=== PATIENT | male | born 1935 | race Caucasian/White ===

== ENCOUNTER 2017-01-25 14:32 | Outpatient (CLI) | payer MEDICARE, BC ==
--- NOTE | 2017-01-25 15:52 | RAD ---
THREE VIEWS RIGHT SHOULDER: Comparison: None. History: Right shoulder pain. FINDINGS: Three views of the right shoulder shows no evidence of acute fracture or dislocation. There is joint space narrowing and osteophyte formation in the acromioclavicular joint. No significant degenerativ e change is seen in the glenohumeral joint. IMPRESSION: Moderate right AC osteoarthritis without acute osseous abnormality. POS: [facility]
== END 2017-01-25 14:33 | disposition home or self-care (01) ==
LOC: SCSRAD 14:32
PROVIDERS: ATTEND Nurse Practitioner Family
DX: M25.511 Pain in right shoulder (principal); M19.011 Primary osteoarthritis, right shoulder

== ENCOUNTER 2017-05-16 11:22 | Outpatient (CLI) | payer MEDICARE, BC ==
[2017-05-16 11:50] LABS: Hemoglobin 15.3 g/dL (14.0-18.0); Mean Corpuscular HGB CONC 33.3 g/dL (32.0-36.0); Mean Corpuscular Hemoglobin 34.5 pg (27.0-31.0); Platelet Count 208 thou/uL (130-400); RBC Distribution Width 11.7 % (11.5-14.5); Red Blood Cell (RBC) Count 4.44 mill/uL (4.70-6.10); White Blood Cell (WBC) Count 6.4 thou/uL (4.8-10.8)
[2017-05-16 11:58] LABS: INR-International Normal Ratio 1.1; Prothrombin Time 14.8 SEC (12.0-14.7)
[2017-05-16 12:09] LABS: Anion Gap 12 mmol/L (10-20); BUN (Urea Nitrogen) 15 mg/dL (8.4-25.7); Calc. Creatinine Clearance 0 mL/min (70-130); Calcium 8.8 mg/dL (7.8-10.44); Carbon Dioxide 27 mmol/L (23-31); Chloride 106 mmol/L (98-107); Estimated GFR-MDRD 89; Glucose 124 mg/dL (83-110); Potassium 4.1 mmol/L (3.5-5.1); Sodium 141 mmol/L (136-145)
--- NOTE | 2017-05-18 00:49 | EKG ---
Test Reason : Blood Pressure : / mmHG Vent. Rate : 077 BPM Atrial Rate : 067 BPM P-R Int : 000 ms QRS Dur : 100 ms QT Int : 426 ms P-R-T Axes : 000 -45 048 degrees QTc Int : 482 ms Atrial fibrillation Left anterior fascicular block Minimal voltage criteria for LVH, may be normal variant Anterior infarct , age undetermined Prolonged QT Abnormal ECG When compared with ECG of 18-JUN-2010 09:17, QRS duration has decreased Borderline criteria for Anterior infarct are no longer Present Confirmed by UZIEL SELF, . SZhou (4) on 05/18/2017 12:49:24 AM Referred By: SMOOTH Confirmed By:DR. Claudine TRIPLETT MD
== END 2017-05-16 11:23 | disposition home or self-care (01) ==
LOC: LABBT 11:22
PROVIDERS: ATTEND Internal Medicine Cardiovascular Disease
DX: Z01.818 Encounter for other preprocedural examination (principal); I48.91 Unspecified atrial fibrillation
CPT/HCPCS: 80048; 85027; 85610; 85730; 93005; 93010

== ENCOUNTER 2017-05-29 09:05 | Day surgery (SDC) | payer MEDICARE, BC ==
[2017-05-16 11:48] VITALS: BMI 30.8
--- NOTE | 2017-05-29 12:43 | OP ---
DATE OF PROCEDURE: 05/29/2017 CARDIOVERSION REPORT REFERRING PHYSICIAN: REASON FOR PROCEDURE: Mr. Garland is an 82-year-old gentleman with history of atrial fibrillation, prior ablation in 2009 and 2010 persisting, but he is feeling more progressively dyspneic. He is here for cardioversion. PROCEDURE: The patient received propofol per Anesthesia specialist. After adequate level of sedation achieved, attempted 70 joule shock did not convert him to sinus rhythm, 150 joules shock was followed who also was unsuccessful. Eventually at 200 joule shock was delivered. Only a couple beats sinus rhythm seen which followed by persisting atypical atrial flutter. CONCLUSION: Unsuccessful cardioversion. PLAN: Recommend mitral valve evaluation with 2D echocardiogram by cardiolog. Previously asymptomatic A Fib. New symptoms could be related to worsening valve function. May initiate AAD vs redo ablation pending echo results. RUBEND
[2017-05-29] MEDS ORDERED: Propofol 200 MG/20 ML VIAL ONE (13:48)
[2017-05-29] MEDS ORDERED: PHENYLEPHRINE-NS 100 MCG/ML 10 ML SYRINGE ONE (13:48)
[2017-05-29] MEDS ORDERED: Lidocaine 1% PF 5 ML VIAL ONE (13:48)
== END 2017-05-29 12:50 | disposition home or self-care (01) ==
LOC: CCL 09:05
PROVIDERS: ATTEND Internal Medicine Cardiovascular Disease
DX: I48.1 Persistent atrial fibrillation (principal); I10 Essential (primary) hypertension; E78.5 Hyperlipidemia, unspecified; I49.3 Ventricular premature depolarization; I34.0 Nonrheumatic mitral (valve) insufficiency; M10.9 Gout, unspecified; Z79.01 Long term (current) use of anticoagulants; Z79.899 Other long term (current) drug therapy; Z87.01 Personal history of pneumonia (recurrent); Z90.89 Acquired absence of other organs; Z98.890 Other specified postprocedural states; E78.2 Mixed hyperlipidemia
CPT/HCPCS: 36415; 80053; 80061; 85025; 92960; 93005; 93010; J2001; J2704

== ENCOUNTER 2019-05-01 10:35 | Inpatient (IN) | payer MEDICARE, BC ==
[2019-05-01 12:42] LABS: Hemoglobin 14.6 g/dL (14.0-18.0); Mean Corpuscular HGB CONC 32.9 g/dL (32.0-36.0); Mean Corpuscular Hemoglobin 34.8 pg (27.0-31.0); Mean Platelet Volume 8.9 fL (7.4-10.4); Platelet Count 127 thou/uL (130-400); RBC Distribution Width 11.8 % (11.5-14.5); Red Blood Cell (RBC) Count 4.18 mill/uL (4.70-6.10)
[2019-05-01 12:47] LABS: #Basophils 0.1 thou/uL (0.0-0.2); #Lymphocytes 1.7 thou/uL (1.20-3.40); #Monocytes 0.6 thou/uL (0.11-0.59); #Neutrophils 4.6 thou/uL (1.40-6.50); %Eosinophils 0.2 % (0.0-10.0); %Monocytes 8.8 % (0.0-10.0); Burr Cells SLIGHT = 2-5 cells (100X) (0-1/hpf); Large Platelets SLIGHT; MDiff Complete? YES; Macrocytosis MODERATE=16-30 cells (100X) (0-5/hpf); Ovalocytes SLIGHT = 2-5 cells (100X) (0-1/hpf); Platelet Morphology Comment Appears Decreased; Polychromasia SLIGHT = 2-3 cells (100X) (0-2/hpf)
[2019-05-01 12:57] LABS: ALT (SGPT) 18 U/L (8-55); AST (SGOT) 19 U/L (5-34); Alkaline Phosphatase 90 U/L (40-110); Anion Gap 14 mmol/L (10-20); BUN (Urea Nitrogen) 25 mg/dL (8.4-25.7); Bilirubin, Total 1.4 mg/dL (0.2-1.2); Calc. Creatinine Clearance 0 mL/min (70-130); Calcium 8.8 mg/dL (7.8-10.44); Carbon Dioxide 21 mmol/L (23-31); Chloride 109 mmol/L (98-107); Estimated GFR-MDRD 73; Globulin 2.5 g/dL (2.4-3.5); Glucose 85 mg/dL (83-110); Potassium 4.2 mmol/L (3.5-5.1); Protein, Total 6.5 g/dL (5.8-8.1); Sodium 140 mmol/L (136-145)
--- NOTE | 2019-05-01 13:13 | RAD ---
EXAM: Single view of the chest HISTORY: Chest pain COMPARISON: 06/09/2009 FINDINGS: Single view of the chest shows an enlarged but stable cardiomediastinal silhouette. A card iac monitoring device projects over the left chest wall. There is no evidence of consolidation, mass, or pleural effusion. The bones are unremarkable. IMPRESSION: No evidence of acute cardiopulmonary disease
[2019-05-01 15:59] LABS: Troponin I 0.034 ng/mL (< 0.028)
[2019-05-01] MEDS ORDERED: Senokot S 8.6-50 MG TAB PO PRN (16:48)
[2019-05-01] MEDS ORDERED: Acetaminophen 650 MG Suppository PR PRN (16:48)
[2019-05-01] MEDS ORDERED: Guaifenesin DM 100-10/5 ML UDCUP PO PRN (16:48)
[2019-05-01] MEDS ORDERED: Acetaminophen 325 MG TAB PO PRN (16:48)
[2019-05-01] MEDS ORDERED: Ondansetron PF 4 MG/2 ML Vial IVP PRN (16:48)
[2019-05-01] MEDS ORDERED: Ondansetron ODT 4 MG TAB PO PRN (16:48)
[2019-05-01] MEDS ORDERED: Zolpidem Tartrate 5 MG TAB PO PRN (16:48)
[2019-05-01] MEDS ORDERED: Furosemide 40 MG/4 ML VIAL SLOW IVP SCH (17:00)
--- NOTE | 2019-05-01 18:03 | HP ---
PRIMARY CARE PHYSICIAN: Dr. Francesco Rich. CHIEF COMPLAINT: Feeling shaky and anxious. HISTORY OF PRESENT ILLNESS: This is an 84-year-old white male with a known history of chronic atrial fibrillation, who has also had a struggle with chronic insomnia from shaking of his legs at night. He has felt increasing shakiness in his legs for the last 2 nights, and felt kind of anxious, and was told by his that he was looking bad and he needs to go into the hospital. He went to the ER, was found to have rapid ventricular response of his atrial fibrillation into the 150s. He was put on a diltiazem drip, which did not resolve the atrial fibrillation, but did control the rate now between 70 to 100 beats per minute. He has not had any chest pain or other symptoms at this time. He was recently started on a Tylenol PM to try and help him sleep at night and put on omeprazole for his gastroesophageal reflux disease. No other significant changes to his medicines recently. The patient denies noticing any lower extremity edema, though he does have significant edema right now, he does not know how long it has been there. He did see Dr. Caal 2 months ago in the clinic and did not have any medication changes or workup done at that time, so he thinks he may not have had it at that time. He does not remember ever being told he had congestive heart failure and has never been on diuretics before that he can remember. He does not remember when his last echocardiogram was, but he does not think it was done in the last year. REVIEW OF SYSTEMS: CONSTITUTIONAL: No fevers. No chills. EYES: No double vision or blurred vision. ENT: No congestion, drainage, or sore throat. CARDIOVASCULAR: No chest pain. He has not noticed his heart racing or any palpitations. PULMONARY: No coughing, wheezing, or shortness of breath. GASTROINTESTINAL: No abdominal pain. No nausea or vomiting. No diarrhea or constipation. GENITOURINARY: No dysuria or hematuria. MUSCULOSKELETAL: No muscle aches or joint pains. He does have a jerking of his legs when he tries to sleep at night. SKIN: No rashes or lesions noted. NEUROLOGIC: No numbness, tingling, or focal weakness. PAST MEDICAL HISTORY: 1. Chronic atrial fibrillation, rate controlled and on Eliquis. 2. Gastroesophageal reflux disease. 3. Hyperlipidemia. 4. Hypertension. 5. Osteoarthritis. PAST SURGICAL HISTORY: 1. Tonsillectomy. 2. Broken jaw repair. 3. Hernia repair. 4. Right knee surgery. 5. Atrial fibrillation ablation x2. SOCIAL HISTORY: The patient smoked cigarettes and pipes some in college. He quit in the early 70s. No alcohol or illicit drug use. He is . He is a retired [employer] from [place] [employer] and [employer]. 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 ALLERGIES: NO KNOWN DRUG ALLERGIES. CURRENT MEDICATIONS: 1. Metoprolol succinate 25 mg twice a day. 2. Eliquis 5 mg twice a day. 3. Prilosec 20 mg daily. 4. Allopurinol 300 mg one-half tablet every other day. 5. Atorvastatin 20 mg daily. 6. Acetaminophen PM at night. PHYSICAL EXAMINATION: VITAL SIGNS: Blood pressure 132/103, pulse 88, respirations 20, O2 saturations 97% on room air, and temperature 97.8. GENERAL: This is a well-developed, well-nourished white male, in no acute distress. HEENT: Pupils are equal, round, and reactive to light. Oropharynx is clear without lesions, erythema, or exudate. NECK: Supple. No lymphadenopathy. No thyroid nodules or enlargement. No JVD. HEART: Irregularly irregular rhythm. No murmurs, rubs, or gallops. LUNGS: Clear to auscultation bilaterally. No crackles, or rhonchi. No increased work of breathing. ABDOMEN: Soft, nontender to palpation. Normoactive bowel sounds. No hepatosplenomegaly or other masses. EXTREMITIES: No clubbing or cyanosis. He does have 2+ pitting edema to bilateral lower extremities up to the knee. SKIN: No rashes or lesions noted. NEUROLOGIC: Intact strength and sensation in all extremities. No facial droop. PSYCHIATRIC: Alert and oriented x3. Normal mood and affect. LABORATORY DATA: CBC grossly normal. He does have an elevated MCV of 106 and a platelet count of 127. Complete metabolic panel notable for chloride of 109 and bicarb of 21 and a total bilirubin of 1.4, which is elevated for him, he has never been high before. The rest of his complete metabolic panel is normal. His troponin was negative the first time, it was indeterminate at 0.034 at his second check. Brain natriuretic peptide was elevated at 408. He has never had this when checked before. IMAGING STUDIES: Chest x-ray; I did review the chest x-ray done in the emergency room along with the radiologist's report. There is no infiltrates or pulmonary edema. There is some stable cardiomegaly unchanged from previous exams. EKG; I did review the EKG done in the emergency room and it does show atrial fibrillation with a rapid ventricular rate and with unifocal premature ventricular complexes. ASSESSMENT: 1. Atrial fibrillation with rapid ventricular rate, improved with diltiazem drip. 2. Hypertension, we will resume the patient's home medications. 3. Apparent new onset congestive heart failure, likely diastolic given his atrial arrhythmias. We will go ahead and get an echocardiogram and consult Cardiology to evaluate him in the morning. We will give him a dose of IV Lasix now and then daily after that. We will do strict I's and O's, and will put him on fluid restriction, low-salt cardiac diet. The patient will likely eventually need to be put on an TAYLOR inhibitor or ARB, and he is already on metoprolol. We will leave adjusting these medications to Cardiology tomorrow. 4. Elevated total bilirubin, mildly elevated, but has never been elevated before , concerning that may be related to hepatic congestion from congestive heart failure versus other etiology. We will go ahead and get an ultrasound of his right upper quadrant. 5. Gastroesophageal reflux disease. We will continue the patient's PPI. 6. Deep venous thrombosis prophylaxis. The patient is already on Eliquis. 7. Code status: I did discuss this with the patient. He is a do not attempt resuscitation. Should he be incapacitated, his would be his medical decision maker, her name is Anish Garland. 8. Insomnia with constant moving legs. It sounds like the patient may actually have some restless legs syndrome. We can try some Requip for restless legs syndrome and have the treatment titrated as an outpatient with his primary care physician. Job ID: [id number] MTDD
[2019-05-01 18:28] VITALS: BMI 28.4
[2019-05-01 18:56] LABS: Troponin I Less than 0.010 ng/mL (< 0.028)
[2019-05-01] MEDS: Atorvastatin Calcium 20 MG TAB PO SCH (20:44)
[2019-05-01] MEDS: Apixaban 5 MG TAB PO SCH (20:45)
[2019-05-01] MEDS: rOPINIRole HCl 0.25 MG TAB PO SCH (20:45)
[2019-05-02 05:36] LABS: #Basophils 0.1 thou/uL (0.0-0.2); #Lymphocytes 1.5 thou/uL (1.20-3.40); #Monocytes 0.7 thou/uL (0.11-0.59); #Neutrophils 5.3 thou/uL (1.40-6.50); %Basophils 0.9 % (0.0-1.0); %Eosinophils 0.3 % (0.0-10.0); %Lymphocytes 19.5 % (21.0-51.0); %Monocytes 9.2 % (0.0-10.0); %Neutrophils 70.1 % (42.0-75.0); Hemoglobin 14.6 g/dL (14.0-18.0); Mean Corpuscular HGB CONC 32.2 g/dL (32.0-36.0); Mean Corpuscular Hemoglobin 33.7 pg (27.0-31.0); Mean Platelet Volume 8.8 fL (7.4-10.4); Platelet Count 134 thou/uL (130-400); RBC Distribution Width 11.8 % (11.5-14.5); Red Blood Cell (RBC) Count 4.34 mill/uL (4.70-6.10); White Blood Cell (WBC) Count 7.5 thou/uL (4.8-10.8)
[2019-05-02 06:02] LABS: Anion Gap 17 mmol/L (10-20); BUN (Urea Nitrogen) 23 mg/dL (8.4-25.7); Calc. Creatinine Clearance 83 mL/min (70-130); Calcium 9.3 mg/dL (7.8-10.44); Carbon Dioxide 20 mmol/L (23-31); Chloride 105 mmol/L (98-107); Estimated GFR-MDRD 84; Glucose 105 mg/dL (83-110); Potassium 3.8 mmol/L (3.5-5.1); Sodium 138 mmol/L (136-145)
--- NOTE | 2019-05-02 07:32 | PDOC.HOSPP ---
- Subjective Encounter Date: 05/02/19 Encounter Time: 11:40 Subjective: Patient very jittery and on edge from not sleeping, Ambien didn't help last night and legs jumping all night. No confusion today, just always have to keep moving. No SOB. No chest pain. Swelling in leg improving a bit. Urinating well. - Objective Vital Signs & Weight: Vital Signs (12 hours) Temp Pulse Resp BP Pulse Ox 05/02/19 05:30 97.5 F L 110 H 18 140/80 95 05/01/19 23:40 97.5 F L 103 H 18 122/82 94 L 05/01/19 20:09 98.5 F 103 H 20 142/88 H 96 Weight Weight 197 lb 8.547 oz I&O: 05/01/19 05/02/19 05/03/19 06:59 06:59 06:59 Intake Total 240 Output Total 3620 Balance -3380 Result Diagrams: 05/02/19 05:25 05/02/19 05:25 Hospitalist ROS - Review of Systems Constitutional: denies: fever, chills Respiratory: denies: cough, shortness of breath Cardiovascular: reports: edema. denies: chest pain, palpitations, orthopnea Gastrointestinal: denies: nausea, vomiting, abdominal pain Neurological: reports: other (insomnia, jittery) - Medication Medications: Active Medications Generic Name Dose Route Start Last Admin Trade Name Freq PRN Reason Stop Dose Admin Apixaban 5 mg 05/01/19 21:00 05/01/19 20:45 Eliquis PO 5 mg BID VIBHA Administration Atorvastatin Calcium 20 mg 05/01/19 21:00 05/01/19 20:44 Lipitor PO 20 mg HS VIBHA Administration Metoprolol Succinate 25 mg 05/01/19 21:00 05/01/19 20:45 Toprol Xl PO 25 mg BID VIBHA Administration Ropinirole HCl 0.25 mg 05/01/19 21:00 05/01/19 20:45 Requip PO 0.25 mg HS VIBHA Administration Zolpidem Tartrate 5 mg 05/01/19 16:48 05/01/19 20:44 Ambien PO 5 mg HSPRN PRN Administration Insomnia - Exam General Appearance: NAD, awake alert Eye: anicteric sclera ENT: moist mucosa Heart: no murmur, no gallops, no rubs, irregular Respiratory: CTAB, no wheezes, no rales, no ronchi Gastrointestinal: soft, non-tender, non-distended, normal bowel sounds Extremities: 2+ LE edema (improving from last night) Musculoskeletal: normal tone, normal strength Psychiatric: normal behavior, A&O x 3 Psychiatric - other findings: midly anxious affect Hosp A/P (1) Atrial fibrillation with RVR Code(s): I48.91 - UNSPECIFIED ATRIAL FIBRILLATION Status: Acute (2) Acute congestive heart failure Code(s): I50.9 - HEART FAILURE, UNSPECIFIED Status: Acute Qualifiers: Heart failure type: unspecified Qualified Code(s): I50.9 - Heart failure, unspecified (3) Elevated bilirubin Code(s): R17 - UNSPECIFIED JAUNDICE Status: Acute (4) Hypertension Code(s): I10 - ESSENTIAL (PRIMARY) HYPERTENSION Status: Chronic Qualifiers: Hypertension type: essential hypertension Qualified Code(s): I10 - Essential (primary) hypertension (5) GERD (gastroesophageal reflux disease) Code(s): K21.9 - GASTRO-ESOPHAGEAL REFLUX DISEASE WITHOUT ESOPHAGITIS Status: Chronic (6) Restless leg syndrome Status: Chronic - Plan Patient diuresing well with IV lasix Cardizem bolus only in ER. Patient now back in slightly tachycardic afib. Cardiology consult this AM. ECHO pending. Starting requip for RLS, can increase dose tomorrow. Offered benzo for anxiety, patient would like to wait for tonight so doesn't accidentally nap and then can't sleep again tonight.
[2019-05-02] MEDS ORDERED: Allopurinol 300 MG TAB PO SCH (09:00)
[2019-05-02] MEDS: Allopurinol 300 MG TAB PO SCH (09:02)
[2019-05-02] MEDS: Apixaban 5 MG TAB PO SCH ×2 (09:03→20:29)
[2019-05-02] MEDS: Furosemide 40 MG/4 ML VIAL SLOW IVP SCH (09:03)
--- NOTE | 2019-05-02 09:12 | ULT ---
RIGHT UPPER QUADRANT ULTRASOUND: HISTORY: Elevated bilirubin. FINDINGS: The liver demonstrates a homogeneous echotexture without focal mass or intrahepatic ductal dilatation . The gallbladder is distended without gallstones, gallbladder wall thickening or pericholecystic flu id. The common duct measures 3 mm in diameter. The pancreas is obscured due to bowel gas. The right k idney is normal. No free fluid is seen. IMPRESSION: No evidence of cholelithiasis. POS: [facility]
--- NOTE | 2019-05-02 14:10 | CON ---
DATE OF CONSULTATION: 05/02/2019 PRIMARY LIFE TRAINER: Stu Caal MD REASON FOR CONSULTATION: Atrial fibrillation with RVR. HISTORY OF PRESENT ILLNESS: Mr. Garland is a very pleasant 84-year-old white gentleman, who comes to the hospital for being jittery. His tells me that for the last 3 to 4 weeks, he has not been sleeping well. He only sleeps about 3 to 4 hours a day because he tries to go to sleep when he starts shaking all over, all his body is shaking. His became concerned more recently as he continued to do this and brought him in for further evaluation. He denies any chest pain, tightness, pressure. No shortness of breath. No palpitations. On admission, he was found to be in atrial fibrillation and RVR, heart rate in the 130s. He is chronically in atrial fibrillation. He is rate controlled most of the time on 25 mg of metoprolol b.i.d. and is also on Eliquis 5 mg twice a day for stroke prophylaxis. He was found to have a mildly elevated BNP and was admitted, given IV Lasix and given a dose of IV diltiazem, that slowed him down, but his blood pressure dropped a little bit, so he is back up into the 110s, 130s. He denies palpitations or any other issues. He has had two ablations in the past. PAST MEDICAL HISTORY: 1. Chronic atrial fibrillation, rate control. 2. History of atrial fibrillation ablations in the past. 3. Hypertension. 4. Hyperlipidemia. 5. Moderate mitral valve regurgitation. 6. Fenpwfex-mr-huokuy tricuspid valve regurgitation. 7. Chronic diastolic heart failure. 8. Hyperlipidemia. 9. GERD. 10. Prostate cancer in the past. OUTPATIENT MEDICATIONS: 1. Eliquis 5 mg b.i.d. 2. Toprol-XL 25 mg a day. 3. Lipitor 20 mg a day. 4. Nexium 40 mg a day. 5. Allopurinol 200 mg a day. 6. Melatonin. 7. Spironolactone 25 mg a day. 8. Clonazepam 0.5 mg a day. ALLERGIES: NO KNOWN DRUG ALLERGIES. SURGICAL HISTORY: 1. Hernia repair. 2. Jaw surgery. 3. Left knee surgery. FAMILY HISTORY: Noncontributory. SOCIAL HISTORY: No alcohol, tobacco, or drugs. REVIEW OF SYSTEMS: Twelve-point review of systems was done and was all negative unless stated in the History of Present Illness. PHYSICAL EXAMINATION: VITAL SIGNS: Temperature 97.5, pulse 104, respiratory rate 18, saturation 92% on room air, blood pressure 138/92. GENERAL: Awake, alert, and oriented x3. No distress. HEENT: Normocephalic, atraumatic. NECK: Supple. LUNGS: Clear. CARDIOVASCULAR: S1, S2. No S3 or S4. No murmurs. ABDOMEN: Soft. Positive bowel sounds. EXTREMITIES: 2+ edema. SKIN: Warm and dry. LABORATORY WORK: Reviewed. CBC with a white count of 7.5, hemoglobin of 14, hematocrit 45, and platelet count of a 134. Chemistries are unremarkable, except for carbon dioxide of 20. Troponin was undetectable, then 0.03, then undetectable again. BNP was 408. ASSESSMENT: 1. Chronic atrial fibrillation, currently in rapid ventricular response. 2. Insomnia. 3. Recent exposure to influenza A. He did have his flu shot, but his had the influenza A diagnosed by swab about 2 or 3 weeks ago. 4. Increased lower extremity swelling. 5. Acute on chronic diastolic heart failure. PLAN: 1. Repeat echocardiogram. His last EF on echo back in June in the office was about 55% to 60%. 2. Continue IV Lasix at current dose as 40 IV daily as his blood pressure has been dropping a little bit. 3. We will try to increase beta sylvia to 50 mg b.i.d. on his metoprolol tartrate and will add diltiazem to try to slow him down a little bit more. 4. Continue Eliquis for stroke prophylaxis. Thank you for letting us to participate in the care of your patient. Dr. Caal, his primary seasonal clerk will follow up in the morning. Job ID: [id number]
--- NOTE | 2019-05-02 14:39 | ULT ---
EXAM: Bilateral lower extremity venous Doppler US HISTORY: bilateral lower extremity edema and pain FINDINGS: Grayscale, color-flow, Doppler evaluation, spectral analysis of the bilateral lower extremities venou s structures is performed with 2-D imaging. The bilateral common femoral, superficial femoral, popliteal, posterior tibial, proximal greater saphenous and profunda femoral veins are imaged. There is normal luminal compressibility, flow, and augmentation in the visualized deep venous structu res of the bilateral lower extremities. IMPRESSION: No evidence of a deep vein thrombosis in either lower extremity.
[2019-05-02 17:19] LABS: Free T4 (Free Thyroxine) 1.19 ng/dL (0.70-1.48); Thyroid Stimulating Hormone 1.6741 uIU/mL (0.35-4.94)
[2019-05-02] MEDS: traZODone HCl 50 MG TAB PO PRN (20:29)
[2019-05-02] MEDS: rOPINIRole HCl 0.25 MG TAB PO SCH (20:29)
[2019-05-02] MEDS: Lorazepam 0.5 MG TAB PO PRN (20:29)
[2019-05-02] MEDS: Atorvastatin Calcium 20 MG TAB PO SCH (20:29)
[2019-05-02] MEDS ORDERED: Diltiazem HCl SR 60 mg Capsule PO SCH (21:00)
[2019-05-03 05:28] LABS: Anion Gap 12 mmol/L (10-20); BUN (Urea Nitrogen) 22 mg/dL (8.4-25.7); Calc. Creatinine Clearance 86 mL/min (70-130); Calcium 8.9 mg/dL (7.8-10.44); Carbon Dioxide 28 mmol/L (23-31); Chloride 104 mmol/L (98-107); Estimated GFR-MDRD 89; Glucose 105 mg/dL (83-110); Potassium 3.6 mmol/L (3.5-5.1); Sodium 140 mmol/L (136-145)
[2019-05-03] MEDS ORDERED: Sacubitril 24.5 MG/Valsartan 25.5 MG TABLET PO SCH (09:00)
[2019-05-03] MEDS: Furosemide 40 MG/4 ML VIAL SLOW IVP SCH (09:33)
[2019-05-03] MEDS: Spironolactone 25 MG TAB PO SCH (09:33)
[2019-05-03] MEDS: Apixaban 5 MG TAB PO SCH ×2 (09:33→20:16)
--- NOTE | 2019-05-03 11:40 | PDOC.HOSPP ---
- Subjective Encounter Date: 05/03/19 Encounter Time: 08:20 Subjective: No specific complaint.. - Objective Vital Signs & Weight: Vital Signs (12 hours) Temp Pulse Resp BP Pulse Ox 05/03/19 07:33 97.5 F L 94 16 119/85 93 L 05/03/19 03:45 98.4 F 84 18 127/75 95 Weight Weight 195 lb 8.8 oz I&O: 05/02/19 05/03/19 05/04/19 06:59 06:59 06:59 Intake Total 240 720 Output Total 3620 1800 Balance -3380 -1080 Result Diagrams: 05/02/19 05:25 05/03/19 04:45 Hospitalist ROS - Medication Medications: Active Medications Generic Name Dose Route Start Last Admin Trade Name Freq PRN Reason Stop Dose Admin Allopurinol 150 mg 05/02/19 09:00 05/02/19 09:02 Zyloprim PO 150 mg Q2DAYS VIBHA Administration Apixaban 5 mg 05/01/19 21:00 05/03/19 09:33 Eliquis PO 5 mg BID VIBHA Administration Furosemide 40 mg 05/02/19 09:00 05/03/19 09:33 Lasix SLOW IVP 40 mg DAILY VIBHA Administration Lorazepam 0.5 mg 05/02/19 14:19 05/02/19 20:29 Ativan PO 0.5 mg Q4H PRN Administration Anxiety Metoprolol Succinate 50 mg 05/02/19 21:00 05/03/19 09:33 Toprol Xl PO 50 mg BID VIBHA Administration Pantoprazole Sodium 40 mg 05/02/19 09:00 05/03/19 09:33 Protonix PO 40 mg DAILY VIBHA Administration Ropinirole HCl 0.25 mg 05/01/19 21:00 05/02/19 20:29 Requip PO 0.25 mg HS VIBHA Administration Sacubitril/Valsartan 1 tab 05/03/19 09:00 05/03/19 09:34 Entresto 24.5 Mg-25.5 Mg Tablet PO 1 tab BID VIBHA Administration Spironolactone 25 mg 05/03/19 08:00 05/03/19 09:33 Aldactone PO 25 mg QAM-WM VIBHA Administration Trazodone HCl 50 mg 05/02/19 11:53 05/02/19 20:29 Desyrel PO 50 mg HSPRN PRN Administration Insomnia - Exam Neck: no JVD Heart: irregular Respiratory: CTAB Gastrointestinal: soft Extremities: 2+ LE edema Neurological: no weakness Psychiatric: normal affect Hosp A/P (1) Acute congestive heart failure Code(s): I50.9 - HEART FAILURE, UNSPECIFIED Status: Acute Qualifiers: Heart failure type: unspecified Qualified Code(s): I50.9 - Heart failure, unspecified (2) Atrial fibrillation with RVR Code(s): I48.91 - UNSPECIFIED ATRIAL FIBRILLATION Status: Acute (3) Elevated bilirubin Code(s): R17 - UNSPECIFIED JAUNDICE Status: Acute (4) GERD (gastroesophageal reflux disease) Code(s): K21.9 - GASTRO-ESOPHAGEAL REFLUX DISEASE WITHOUT ESOPHAGITIS Status: Chronic (5) Hypertension Code(s): I10 - ESSENTIAL (PRIMARY) HYPERTENSION Status: Chronic Qualifiers: Hypertension type: essential hypertension Qualified Code(s): I10 - Essential (primary) hypertension (6) Restless leg syndrome Status: Chronic - Plan Overall condition better.. Meds readjusted. Continue current therapy.. f/u chemistry.
[2019-05-03] MEDS ORDERED: Digoxin 0.5 MG/2 ML AMP SLOW IVP SCH ×2 (14:45→16:45)
[2019-05-03] MEDS ORDERED: Digoxin 0.25 MG TAB PO SCH (18:45)
[2019-05-03] MEDS: rOPINIRole HCl 0.25 MG TAB PO SCH (20:16)
[2019-05-03] MEDS: Lorazepam 0.5 MG TAB PO PRN (22:22)
[2019-05-04] MEDS: traZODone HCl 50 MG TAB PO PRN ×2 (00:53→20:52)
[2019-05-04] MEDS: Lorazepam 0.5 MG TAB PO PRN ×2 (02:37→22:12)
[2019-05-04 06:04] LABS: Anion Gap 12 mmol/L (10-20); BUN (Urea Nitrogen) 16 mg/dL (8.4-25.7); Calc. Creatinine Clearance 93 mL/min (70-130); Carbon Dioxide 28 mmol/L (23-31); Chloride 105 mmol/L (98-107); Estimated GFR-MDRD Greater than 90; Glucose 103 mg/dL (83-110); Potassium 3.8 mmol/L (3.5-5.1); Sodium 141 mmol/L (136-145)
[2019-05-04] MEDS: Allopurinol 300 MG TAB PO SCH (08:52)
[2019-05-04] MEDS: Spironolactone 25 MG TAB PO SCH (08:52)
[2019-05-04] MEDS: Digoxin 0.25 MG TAB PO SCH (08:53)
[2019-05-04] MEDS: Furosemide 40 MG/4 ML VIAL SLOW IVP SCH (08:53)
[2019-05-04] MEDS: Apixaban 5 MG TAB PO SCH ×2 (08:54→20:53)
--- NOTE | 2019-05-04 11:03 | PDOC.HOSPP ---
- Subjective Encounter Date: 05/04/19 Encounter Time: 08:25 Subjective: No new complaint.. Feels better. - Objective Vital Signs & Weight: Vital Signs (12 hours) Temp Pulse Pulse Pulse Resp BP BP 05/04/19 09:04 60 69 128/69 147/66 H 05/04/19 07:20 97.7 F 60 16 05/04/19 02:35 98 F 96 17 BP Pulse Ox Pulse Ox Pulse Ox 05/04/19 09:04 96 96 05/04/19 07:20 112/68 93 L 05/04/19 02:35 114/80 94 L Weight Weight 188 lb 0.869 oz I&O: 05/03/19 05/04/19 05/05/19 06:59 06:59 06:59 Intake Total 720 1055 Output Total 3417 5962 [facility] -6023 -6250 Result Diagrams: 05/02/19 05:25 05/04/19 05:23 Hospitalist ROS - Medication Medications: Active Medications Generic Name Dose Route Start Last Admin Trade Name Freq PRN Reason Stop Dose Admin Allopurinol 150 mg 05/02/19 09:00 05/04/19 08:52 Zyloprim PO 150 mg Q2DAYS VIBHA Administration Apixaban 5 mg 05/01/19 21:00 05/04/19 08:54 Eliquis PO 5 mg BID VIBHA Administration Digoxin 0.25 mg 05/04/19 09:00 05/04/19 08:53 Lanoxin PO 0.25 mg QAM VIBHA Administration Furosemide 40 mg 05/02/19 09:00 05/04/19 08:53 Lasix SLOW IVP 40 mg DAILY VIBHA Administration Lorazepam 0.5 mg 05/02/19 14:19 05/04/19 02:37 Ativan PO 0.5 mg Q4H PRN Administration Anxiety Metoprolol Succinate 50 mg 05/02/19 21:00 05/04/19 08:53 Toprol Xl PO 50 mg BID VIBHA Administration Pantoprazole Sodium 40 mg 05/02/19 09:00 05/04/19 08:53 Protonix PO 40 mg DAILY VIBHA Administration Ropinirole HCl 0.25 mg 05/01/19 21:00 05/03/19 20:16 Requip PO 0.25 mg HS VIBHA Administration Sacubitril/Valsartan 1 tab 05/03/19 21:00 05/04/19 08:54 Entresto 24 Mg-26 Mg Tablet PO 1 tab BID VIBHA Administration Spironolactone 25 mg 05/03/19 08:00 05/04/19 08:52 Aldactone PO 25 mg QAM-WM VIBHA Administration Trazodone HCl 50 mg 05/02/19 11:53 05/04/19 00:53 Desyrel PO 50 mg HSPRN PRN Administration Insomnia - Exam Neck: no JVD Heart: irregular Respiratory: CTAB Gastrointestinal: soft Extremities: 1+ LE edema Psychiatric: normal affect Hosp A/P (1) Acute congestive heart failure Code(s): I50.9 - HEART FAILURE, UNSPECIFIED Status: Acute Qualifiers: Heart failure type: unspecified Qualified Code(s): I50.9 - Heart failure, unspecified (2) Atrial fibrillation with RVR Code(s): I48.91 - UNSPECIFIED ATRIAL FIBRILLATION Status: Acute (3) Elevated bilirubin Code(s): R17 - UNSPECIFIED JAUNDICE Status: Acute (4) GERD (gastroesophageal reflux disease) Code(s): K21.9 - GASTRO-ESOPHAGEAL REFLUX DISEASE WITHOUT ESOPHAGITIS Status: Chronic (5) Hypertension Code(s): I10 - ESSENTIAL (PRIMARY) HYPERTENSION Status: Chronic Qualifiers: Hypertension type: essential hypertension Qualified Code(s): I10 - Essential (primary) hypertension (6) Restless leg syndrome Status: Chronic - Plan Overall condition better.. Meds readjusted. Continue current therapy.. f/u with cardiology. continue current therapy..
[2019-05-04] MEDS: rOPINIRole HCl 0.25 MG TAB PO SCH (20:52)
[2019-05-04] MEDS ORDERED: Melatonin 3 MG TAB PO PRN (23:44)
[2019-05-05] MEDS: Apixaban 5 MG TAB PO SCH ×2 (09:07→21:10)
[2019-05-05] MEDS: Furosemide 40 MG/4 ML VIAL SLOW IVP SCH (09:07)
[2019-05-05] MEDS: Spironolactone 25 MG TAB PO SCH (09:07)
[2019-05-05] MEDS: Digoxin 0.25 MG TAB PO SCH (09:07)
--- NOTE | 2019-05-05 09:22 | PDOC.HOSPP ---
- Subjective Encounter Date: 05/05/19 Encounter Time: 08:55 Subjective: Expresses no complaint. Feels better. - Objective Vital Signs & Weight: Vital Signs (12 hours) Temp Pulse Resp BP Pulse Ox 05/05/19 07:30 98.3 F 60 18 102/57 L 93 L 05/05/19 04:05 98 F 92 18 105/63 95 Weight Weight 183 lb 6.793 oz I&O: 05/04/19 05/05/19 05/06/19 06:59 06:59 06:59 Intake Total 1055 1200 Output Total 5028 6842 Balance -6653 -7131 Result Diagrams: 05/02/19 05:25 05/04/19 05:23 Hospitalist ROS - Medication Medications: Active Medications Generic Name Dose Route Start Last Admin Trade Name Freq PRN Reason Stop Dose Admin Allopurinol 150 mg 05/02/19 09:00 05/04/19 08:52 Zyloprim PO 150 mg Q2DAYS VIBHA Administration Apixaban 5 mg 05/01/19 21:00 05/05/19 09:07 Eliquis PO 5 mg BID VIBHA Administration Digoxin 0.25 mg 05/04/19 09:00 05/05/19 09:07 Lanoxin PO 0.25 mg QAM VIBHA Administration Furosemide 40 mg 05/02/19 09:00 05/05/19 09:07 Lasix SLOW IVP 40 mg DAILY VIBHA Administration Lorazepam 0.5 mg 05/02/19 14:19 05/04/19 22:12 Ativan PO 0.5 mg Q4H PRN Administration Anxiety Metoprolol Succinate 50 mg 05/02/19 21:00 05/05/19 09:07 Toprol Xl PO 50 mg BID VIBHA Administration Pantoprazole Sodium 40 mg 05/02/19 09:00 05/05/19 09:07 Protonix PO 40 mg DAILY VIBHA Administration Ropinirole HCl 0.25 mg 05/01/19 21:00 05/04/19 20:52 Requip PO 0.25 mg HS VIBHA Administration Sacubitril/Valsartan 1 tab 05/03/19 21:00 05/05/19 09:07 Entresto 24 Mg-26 Mg Tablet PO 1 tab BID VIBHA Administration Spironolactone 25 mg 05/03/19 08:00 05/05/19 09:07 Aldactone PO 25 mg QAM-WM VIBHA Administration Trazodone HCl 50 mg 05/02/19 11:53 05/04/19 20:52 Desyrel PO 50 mg HSPRN PRN Administration Insomnia - Exam General Appearance: NAD Neck: no JVD Heart: irregular Respiratory: CTAB Gastrointestinal: soft Extremities: 2+ LE edema Neurological: no weakness Psychiatric: normal affect Hosp A/P (1) Acute congestive heart failure Code(s): I50.9 - HEART FAILURE, UNSPECIFIED Status: Acute Qualifiers: Heart failure type: unspecified Qualified Code(s): I50.9 - Heart failure, unspecified (2) Atrial fibrillation with RVR Code(s): I48.91 - UNSPECIFIED ATRIAL FIBRILLATION Status: Acute (3) Elevated bilirubin Code(s): R17 - UNSPECIFIED JAUNDICE Status: Acute (4) GERD (gastroesophageal reflux disease) Code(s): K21.9 - GASTRO-ESOPHAGEAL REFLUX DISEASE WITHOUT ESOPHAGITIS Status: Chronic (5) Hypertension Code(s): I10 - ESSENTIAL (PRIMARY) HYPERTENSION Status: Chronic Qualifiers: Hypertension type: essential hypertension Qualified Code(s): I10 - Essential (primary) hypertension (6) Restless leg syndrome Status: Chronic - Plan Overall condition better.. Meds readjusted. Continue current therapy... continue current therapy.. Home when OK with cardiology..
[2019-05-05] MEDS: rOPINIRole HCl 0.25 MG TAB PO SCH (21:10)
[2019-05-05] MEDS: traZODone HCl 50 MG TAB PO PRN (21:10)
[2019-05-05] MEDS: Lorazepam 0.5 MG TAB PO PRN (22:20)
--- NOTE | 2019-05-06 08:31 | PDOC.HOSPP ---
- Subjective Encounter Date: 05/06/19 Encounter Time: 10:00 Subjective: Patient eventually slept about midnight and woke up at 0800 this AM. Feeling much better. Internal shaking feeling improved. Cleared for d/c by Dr. Caal. - Objective Vital Signs & Weight: Vital Signs (12 hours) Temp Pulse Resp BP Pulse Ox 05/06/19 04:25 97.6 F 76 16 105/70 95 Weight Weight 183 lb 1.6 oz I&O: 05/05/19 05/06/19 05/07/19 06:59 06:59 06:59 Intake Total 1200 1160 Output Total 2650 2350 Balance -1450 -1190 Result Diagrams: 05/02/19 05:25 05/04/19 05:23 Hospitalist ROS - Review of Systems Constitutional: denies: fever, chills Respiratory: denies: cough, shortness of breath Cardiovascular: denies: chest pain, palpitations, edema Gastrointestinal: denies: nausea, vomiting, abdominal pain - Medication Medications: Active Medications Generic Name Dose Route Start Last Admin Trade Name Freq PRN Reason Stop Dose Admin Allopurinol 150 mg 05/02/19 09:00 05/04/19 08:52 Zyloprim PO 150 mg Q2DAYS VIBHA Administration Apixaban 5 mg 05/01/19 21:00 05/05/19 21:10 Eliquis PO 5 mg BID VIBHA Administration Lorazepam 0.5 mg 05/02/19 14:19 05/05/19 22:20 Ativan PO 0.5 mg Q4H PRN Administration Anxiety Melatonin 3 mg 05/04/19 23:44 05/05/19 23:26 Melatonin PO 3 mg HSPRN PRN Administration Insomnia Metoprolol Succinate 50 mg 05/02/19 21:00 05/05/19 21:10 Toprol Xl PO 50 mg BID VIBHA Administration Pantoprazole Sodium 40 mg 05/02/19 09:00 05/05/19 09:07 Protonix PO 40 mg DAILY VIBHA Administration Ropinirole HCl 0.25 mg 05/01/19 21:00 05/05/19 21:10 Requip PO 0.25 mg HS VIBHA Administration Sacubitril/Valsartan 1 tab 05/03/19 21:00 05/05/19 21:10 Entresto 24 Mg-26 Mg Tablet PO 1 tab BID VIBHA Administration Spironolactone 25 mg 05/03/19 08:00 05/05/19 09:07 Aldactone PO 25 mg QAM-WM VIBHA Administration Trazodone HCl 50 mg 05/02/19 11:53 05/05/19 21:10 Desyrel PO 50 mg HSPRN PRN Administration Insomnia - Exam General Appearance: NAD, awake alert Eye: anicteric sclera ENT: moist mucosa Heart: no murmur, no gallops, irregular Respiratory: CTAB, no wheezes, no rales, no ronchi Gastrointestinal: soft, non-tender, non-distended, normal bowel sounds Extremities: no edema Psychiatric: normal affect, normal behavior, A&O x 3 Hosp A/P (1) Atrial fibrillation with RVR Code(s): I48.91 - UNSPECIFIED ATRIAL FIBRILLATION Status: Acute (2) Acute congestive heart failure Code(s): I50.9 - HEART FAILURE, UNSPECIFIED Status: Acute Qualifiers: Heart failure type: combined systolic and diastolic Qualified Code(s): I50.41 - Acute combined systolic (congestive) and diastolic (congestive) heart failure (3) Elevated bilirubin Code(s): R17 - UNSPECIFIED JAUNDICE Status: Acute (4) Hypertension Code(s): I10 - ESSENTIAL (PRIMARY) HYPERTENSION Status: Chronic Qualifiers: Hypertension type: essential hypertension Qualified Code(s): I10 - Essential (primary) hypertension (5) GERD (gastroesophageal reflux disease) Code(s): K21.9 - GASTRO-ESOPHAGEAL REFLUX DISEASE WITHOUT ESOPHAGITIS Status: Chronic (6) Restless leg syndrome Status: Chronic - Plan Patient diuresed well, now switched to oral lasix Afib rate controlled on increased dose Metoprolol and Digoxin ECHO with EF 30-35%, mixed systolic/diastolic CHF Dr Caal following. T.bili minimally high, normal U/S, suspect from hepatic congestion Per Dr. Rich patient was fine on introductory dose of Requip at home, but very internally jittery with attempted increase. Will continue on introductory dose only as tolerating it well. Sleeping better on Trazadone. Home today.
[2019-05-06] MEDS ORDERED: Sodium Chloride 0.9% 10 ML ONE (08:37)
[2019-05-06] MEDS ORDERED: Digoxin 0.125 MG TAB PO SCH (09:00)
[2019-05-06] MEDS ORDERED: Furosemide 20 MG TAB PO SCH (09:00)
[2019-05-06] MEDS: Allopurinol 300 MG TAB PO SCH (09:38)
[2019-05-06] MEDS: Spironolactone 25 MG TAB PO SCH (09:38)
[2019-05-06] MEDS: Apixaban 5 MG TAB PO SCH (09:39)
[2019-05-06 12:21] VITALS: TEMP 97.9
[2019-05-06 17:25] VITALS: BP 90/64
[2019-05-06] MEDS ORDERED: Atorvastatin Calcium 20 MG TAB PO SCH (21:00)
--- NOTE | 2019-05-07 04:46 | DIS ---
DATE OF ADMISSION: 05/02/2019 DATE OF DISCHARGE: 05/06/2019 PRIMARY CARE PHYSICIAN: Francesco Rich MD REASON FOR ADMISSION: Atrial fibrillation with rapid ventricular rate and CHF. DIAGNOSES AT DISCHARGE: 1. Chronic atrial fibrillation, now with controlled rate. 2. Acute combined systolic and diastolic congestive heart failure. 3. Hypertension. 4. Gastroesophageal reflux disease. 5. Restless legs syndrome. 6. Insomnia. PROCEDURES: 1. Right upper quadrant ultrasound showing normal liver, normal gallbladder, and normal common bile duct. 2. Bilateral lower extremity Doppler ultrasound showing no evidence of deep venous thrombosis. 3. Echocardiogram showing ejection fraction of 30% to 35% and diastolic dysfunction due to atrial fibrillation. 4. Repeat echocardiogram after treatment showing an ejection fraction of 35% to 40%. CONSULTATIONS: Cardiology, Dr. Guillermo and Dr. Caal. SUMMARY OF HOSPITAL COURSE: This is an 84-year-old white male with a known history of chronic atrial fibrillation and chronic insomnia with restless legs syndrome. He presented with increased shakiness in his legs for the last two nights, feeling very anxious, not able to sleep at all for two nights. So, he came into the ER, was found to be in atrial fibrillation with a rapid ventricular rate into the 150s. This resolved with a dose of diltiazem. He was also noted to have significant lower extremity edema bilaterally. He has never been on loop diuretics per his report. The patient was admitted to the hospital. Dr. Guillermo was consulted for Dr. Caal. The patient had an echocardiogram, which showed a newly lowered ejection fraction of 30% to 35% with diastolic dysfunction. The patient was diuresed with Lasix in the hospital with resolution of his lower extremity edema. He had his rate control with digoxin and increase in his home metoprolol. I did discuss patient's case with Dr. Rich, who has been treating his restless legs syndrome and insomnia as an outpatient. He states that he had been on Requip with some good results, but at the very introductory dose, when they tried to increase to the double dose, the patient became very shaky internally. Dr. Rich was concerned that this might be a dopaminergic reaction and discontinued the medication. He has not been able to get any other medicines to work for the insomnia. At this point, we did restart his Requip with a very low dose and he seemed to have some benefit from that without any increase in his shakiness. We also started him on trazodone and this seemed to help and he did get a full night's sleep the night before discharge. The patient was, after the diuretics, being placed on Entresto and spironolactone. The patient's echo was repeated, and his ejection fraction had come up a little bit. He then was not needing any defibrillator at the time of discharge, and he was cleared to go home by Dr. Caal. DISCHARGE MANAGEMENT: Discharged home. FOLLOWUP: Follow up with Dr. Caal on August [address] Rich on May 10 along with cardiac rehab. ACTIVITY: As tolerated. DIET: Healthy heart, fluid-restricted, low-sodium diet. MEDICATIONS: 1. Digoxin 0.125 mg daily, 30 tablets dispensed. 2. Furosemide 20 mg daily, 30 tablets dispensed. 3. Melatonin 3 mg at night as needed, 30 tablets dispensed. 4. Metoprolol succinate 50 mg twice a day, 60 tablets dispensed. 5. Requip 0.25 mg at night, 30 tablets dispensed. 6. Entresto 24/26 mg one tablet twice a day, 60 tablets dispensed. 7. Spironolactone 25 mg daily, 30 tablets dispensed. 8. Trazodone 50 mg at night as needed for insomnia, 30 tablets dispensed. 9. Allopurinol 150 mg every other day. 10. Eliquis 5 mg twice a day. 11. Atorvastatin 20 mg at night. 12. Prilosec 20 mg daily. TIME SPENT: Arranging the details of this discharge took 35 minutes. Job ID: [id number]
--- NOTE | 2019-05-08 01:17 | PQF ---
ALBIN VILLAGOMEZ RYAN ANDREW MD [id number] CLINICAL DOCUMENTATION CLARIFICATION FORM: POST DISCHARGE Addendum to original discharge summary date: ____ Late entry note date: __ DATE: 05/08/2019 ATTN: Prakash Daugherty Please exercise your independent, professional judgment in responding to the clarification form. Clinical indicators are provided on the bottom of this form for your review Please check appropriate box(s): Conflicting documentation was noted in the Medical Record, please clarify if patient is being treated/monitored for: [ X ] Acute combined systolic/diastolic CHF [ ] Acute on chronic diastolic CHF [ ] Acute diastolic CHF [ ] Other diagnosis [ ] Unable to determine In addition, please specify: Present on Admission (POA): [ X ] Yes [ ] No [ ] Unable to determine For continuity of documentation, please document condition throughout progress notes and discharge summary. Thank You. CLINICAL INDICATORS - SIGNS / SYMPTOMS/ LABS Consult 05/02 "Acute on chronic diastolic CHF" PN 05/03 "Acute CHF" DS 05/06 "Acute combined systolic/diastolic CHF" Consult 05/02 "Chronic diastolic CHF" HP 05/01 "he does have significant edema" HP 05/01 "some stable cardiomegaly" DS 05/06 "EF 30% to 35% with diastolic dysfunction" RISK FACTORS HP 05/01-84 years old male HP 05/01-Chronic Afib HP 05/01-HLD HP 05/01-HTN HP 05/01-Former Smoker Consult 05/02-Mitral and tricuspid regurgitation TREATMENT Collected 05/01-Chest Xray 05/01-Strict inputs and outputs Collected 05/02-Echocardiogram MAR 05/01-Eliquis 5mg Oral MAR 05/01-Lipitor 20mg Oral MAR 05/01-Metoprolol 25mg Oral MAR 05/03-Aldactone 25mg Oral MAR 05/06-Lasix 20mg Oral (This form is maintained as a part of the permanent medical record) 2014 [employer], [employer]. All Rights Reserved [email or web address] [not provided] MTDD
== END 2019-05-06 17:30 | disposition home or self-care (01) | DRG 308 ==
LOC: ERS 10:35 → ERHOLD 14:39 → 2SW 17:58 → OBSVTOIN 05-02 11:51 → 2NO 05-05 16:35
PROVIDERS: ADMIT Emergency Medicine; ATTEND Emergency Medicine
DX: I48.20 Chronic atrial fibrillation, unspecified (principal); I50.41 Acute combined systolic (congestive) and diastolic (congestive) heart failure; R17 Unspecified jaundice; I11.0 Hypertensive heart disease with heart failure; F51.04 Psychophysiologic insomnia; K21.9 Gastro-esophageal reflux disease without esophagitis; E78.5 Hyperlipidemia, unspecified; M19.90 Unspecified osteoarthritis, unspecified site; G25.81 Restless legs syndrome; E78.00 Pure hypercholesterolemia, unspecified; I08.1 Rheumatic disorders of both mitral and tricuspid valves; Z87.891 Personal history of nicotine dependence; Z79.02 Long term (current) use of antithrombotics/antiplatelets; Z79.899 Other long term (current) drug therapy; Z85.46 Personal history of malignant neoplasm of prostate
CPT/HCPCS: 36415; 71045; 76705; 80048; 80053; 83880; 84439; 84443; 84484; 85025; 87804; 93005; 93306; 93798; 93970; 96374; J1160; J1940

== ENCOUNTER 2019-05-22 16:30 | Outpatient (CLI) | payer MEDICARE, BC ==
[2019-05-22 17:14] LABS: Hemoglobin 16.2 g/dL (14.0-18.0); Mean Corpuscular HGB CONC 31.6 g/dL (32.0-36.0); Mean Corpuscular Hemoglobin 33.1 pg (27.0-31.0); Mean Platelet Volume 8.7 fL (7.4-10.4); Platelet Count 177 thou/uL (130-400); RBC Distribution Width 11.6 % (11.5-14.5); Red Blood Cell (RBC) Count 4.88 mill/uL (4.70-6.10); White Blood Cell (WBC) Count 7.2 thou/uL (4.8-10.8)
[2019-05-22 17:27] LABS: INR-International Normal Ratio 1.3; PTT 37.7 SEC (22.9-36.1); Prothrombin Time 15.7 SEC (12.0-14.7)
== END 2019-05-22 16:31 | disposition home or self-care (01) ==
LOC: LABBT 16:30
PROVIDERS: ATTEND Internal Medicine Cardiovascular Disease
DX: Z01.818 Encounter for other preprocedural examination (principal); I48.91 Unspecified atrial fibrillation
CPT/HCPCS: 36415; 80053; 80061; 80162; 81001; 83735; 83880; 85027; 85610; 85730; 93005; 93010

== ENCOUNTER 2019-05-24 07:46 | Day surgery (SDC) | payer MEDICARE, BC ==
[2019-05-22 16:51] VITALS: BMI 24.5
[2019-05-24] MEDS ORDERED: Lidocaine 1% w/Epinephrine 1:100K 20 ML VIAL ONE (09:24)
[2019-05-24] MEDS ORDERED: PROPOFOL 20 ML ONE (09:24)
[2019-05-24] MEDS ORDERED: ePHEDrine/0.9% NaCl/PF SYRINGE 50 mg/10 ml ONE (09:45)
[2019-05-24] MEDS ORDERED: Glycopyrrolate 0.2 MG/ML 5 ML SYRINGE ONE (09:45)
--- NOTE | 2019-05-24 15:39 | OP ---
DATE OF PROCEDURE: 05/24/2019 PROCEDURE PERFORMED: LINQ recorder insertion report. REASON FOR PROCEDURE: Mr. Garland is an 84-year-old man with history of recurrent atrial arrhythmias, prior atrial fibrillation ablation, status post amiodarone loading for atrial fibrillation with RVR, also had cardiomyopathy, frequent PVCs. He is here for a LINQ recorder exchange, hence better deflation and need for further monitoring. DESCRIPTION OF PROCEDURE: The left precordial area was prepped, draped, and anesthetized using subcutaneous lidocaine. Incision was made over the preexisting device and it was expanded with simple traction. A new LINQ recorder device was inserted in its place. The wound was closed with Dermabond and Steri-Strips. No complications noted. DEVICE PARAMETERS: Model #[id number], serial #[id number]. CONCLUSION: Successful LINQ recorder explant and new LINQ recorder implant. PLAN: Continue routine monitoring. Job ID: [id number]
--- NOTE | 2019-05-24 16:28 | OP ---
DATE OF PROCEDURE: 05/24/2019 PROCEDURE PERFORMED: Cardioversion. REASON FOR PROCEDURE: Mr. Garland is an 84-year-old male with prior history of pulmonary venous isolation procedure in the past 2009, since then had recurrent atrial fibrillation on rate control only. He has been loaded with amiodarone and here is for an attempted cardioversion. He has been anticoagulated with Eliquis long-term. DESCRIPTION OF PROCEDURE: The patient received propofol by Anesthesia specialist. After adequate level of sedation achieved, a synchronized 200-joule shock initially did not convert the patient back to sinus rhythm. A followup 350-joule shock with reposition of pads converted him back to sinus rhythm with return rates of 45 to 55 beats per minute. Frequent PACs are seen and occasional PVCs as well. PLAN: Continue monitoring for heart rates. Stop digoxin and consider pacing if heart rates do not improve with holding medications. Also, if LVEF remains less than 35%, ICD implantation is a consideration. Job ID: [id number]
--- NOTE | 2019-05-27 18:56 | EKG ---
Test Reason : POST CARDIOVERSION Blood Pressure : / mmHG Vent. Rate : 072 BPM Atrial Rate : 072 BPM P-R Int : 000 ms QRS Dur : 102 ms QT Int : 490 ms P-R-T Axes : 000 -47 014 degrees QTc Int : 536 ms Undetermined rhythm Left anterior fascicular block Cannot rule out Inferior infarct (masked by fascicular block?) , age undetermined Prolonged QT Abnormal ECG When compared with ECG of 22-MAY-2019 16:44, (Unconfirmed) Current undetermined rhythm precludes rhythm comparison, needs review Criteria for Anterior infarct are no longer Present Nonspecific T wave abnormality, improved in Anterolateral leads QT has lengthened Confirmed by DR. Claudine TRIPLETT MD ([id number]) on 05/27/2019 6:56:02 PM Referred By: [facility] Confirmed By:DR. Claudine TRIPLETT MD
== END 2019-05-24 13:04 | disposition home or self-care (01) ==
LOC: CCL 07:46
PROVIDERS: ATTEND Internal Medicine Cardiovascular Disease
PROC: 5A2204Z Restoration of Cardiac Rhythm, Single (ICD-10-PCS; principal; 2019-05-24)
PROC: 0JH632Z Insertion of Monitoring Device into Chest Subcutaneous Tissue and Fascia, Percutaneous Approach (ICD-10-PCS; 2019-05-24)
DX: I48.11 Longstanding persistent atrial fibrillation (principal); I11.0 Hypertensive heart disease with heart failure; I50.40 Unspecified combined systolic (congestive) and diastolic (congestive) heart failure; I42.9 Cardiomyopathy, unspecified; I49.3 Ventricular premature depolarization; E78.5 Hyperlipidemia, unspecified; I25.10 Atherosclerotic heart disease of native coronary artery without angina pectoris; Z79.01 Long term (current) use of anticoagulants; Z79.899 Other long term (current) drug therapy
CPT/HCPCS: 33285; 33286; 92960; 93005; 93010; 93306; C1764; J2704

== ENCOUNTER 2019-05-27 16:11 | Outpatient (CLI) | payer MEDICARE, BC ==
[2019-05-27 16:53] LABS: Hemoglobin 15.9 g/dL (14.0-18.0); Mean Corpuscular HGB CONC 32.5 g/dL (32.0-36.0); Mean Corpuscular Hemoglobin 33.5 pg (27.0-31.0); Mean Platelet Volume 8.7 fL (7.4-10.4); Platelet Count 135 thou/uL (130-400); RBC Distribution Width 11.4 % (11.5-14.5); Red Blood Cell (RBC) Count 4.76 mill/uL (4.70-6.10)
[2019-05-27 16:58] LABS: INR-International Normal Ratio 1.1; PTT 36.5 SEC (22.9-36.1); Prothrombin Time 14.6 SEC (12.0-14.7)
[2019-05-27 17:21] LABS: Anion Gap 13 mmol/L (10-20); BUN (Urea Nitrogen) 29 mg/dL (8.4-25.7); Calc. Creatinine Clearance 0 mL/min (70-130); Calcium 9.4 mg/dL (7.8-10.44); Carbon Dioxide 27 mmol/L (23-31); Chloride 106 mmol/L (98-107); Estimated GFR-MDRD 77; Glucose 103 mg/dL (83-110); Potassium 4.6 mmol/L (3.5-5.1); Sodium 141 mmol/L (136-145)
[2019-05-28] MEDS ORDERED: CEFAZOLIN 1 GM VIAL ONE (09:16)
[2019-05-28] MEDS ORDERED: Gentamicin 80 MG/2 ML VIAL ONE (09:16)
[2019-05-28] MEDS ORDERED: Midazolam HCl 2 mg/2 ml Vial ONE (11:05)
[2019-05-28] MEDS ORDERED: Fentanyl 100 MCG/2 ML VIAL ONE (11:06)
--- NOTE | 2019-06-02 23:50 | EKG ---
Test Reason : Blood Pressure : / mmHG Vent. Rate : 071 BPM Atrial Rate : 060 BPM P-R Int : 000 ms QRS Dur : 100 ms QT Int : 418 ms P-R-T Axes : 032 -35 081 degrees QTc Int : 454 ms undetermined rhythm with frequent , and consecutive Premature ventricular complexes Left axis deviation Incomplete right bundle branch block Left ventricular hypertrophy with repolarization abnormality Abnormal ECG When compared with ECG of 24-MAY-2019 09:55, (Unconfirmed) Previous ECG has undetermined rhythm, needs review Left anterior fascicular block is no longer Present Incomplete right bundle branch block is now Present Minimal criteria for Inferior infarct are no longer Present Confirmed by Luiz CARRILLO ([id number]) on 06/02/2019 11:49:57 PM Referred By: CHRISTY Confirmed By:Luiz CARRILLO
== END 2019-05-27 16:12 | disposition home or self-care (01) ==
LOC: SDC 16:11 → LABBT 16:12
PROVIDERS: ATTEND Internal Medicine Cardiovascular Disease
DX: Z01.818 Encounter for other preprocedural examination (principal); I48.91 Unspecified atrial fibrillation
CPT/HCPCS: 80048; 85027; 85610; 85730; 93005; 93010

== ENCOUNTER → 2019-05-28 | Day surgery (SDC) | payer MEDICARE, BC ==
[2019-05-27 16:03] VITALS: BMI 24.5
[~2019-05-28] MED LIST: Iopamidol 370 76% 50 ML VIAL FS ONE
--- NOTE | 2019-05-28 16:17 | RAD ---
AP CHEST: 05/28/19 HISTORY: Pacemaker placement. COMPARISON: 05/01/19. Borderline cardiomegaly. Lung zhao appear clear. Dual lead pacemaker device has been placed. Leads appear adequately positioned. No pneumothorax or other acute process. IMPRESSION: No acute findings. POS: OMAR
--- NOTE | 2019-05-28 20:23 | OP ---
DATE OF PROCEDURE: 05/28/2019 PROCEDURE: Dual-chamber pacemaker placement with RV lead placement in the left bundle branch conduction system. CLINICAL INDICATION: History of atrial fibrillation with high-grade AV block and symptomatic bradycardia. ASA CLASSIFICATION: 3. ANESTHESIA: Versed 2 mg, fentanyl 50 mcg. ADDITIONAL CARDIAC MEDICATIONS: None. ESTIMATED BLOOD LOSS: Less than 5 mL. TOTAL FLUORO TIME: 21.7 minutes. ACUTE COMPLICATIONS: None. METHODS: After informed consent was obtained, patient taken to the EP lab in a fasting state. Left shoulder was prepped and draped. Using a #15 blade, a 2-inch incision was made. Bovie and blunt dissection used to perform a pocket in the pectoralis fascia. Using a micropuncture needle over the 2nd rib, the left axillary vein was accessed and 2 wires were inserted into the central venous system. The wires were used to place the leads into the right ventricular septum boring through until left bundle conduction was evident and low right atrial lead position for optimal atrial lead tracking. Sheaths were then removed. Hemostasis was achieved with direct pressure. The wound was irrigated. The leads were connected to a dual-chamber pacemaker, it was inserted in pocket with graphics up and secured to the pectoral fascia using 2-0 silk. The pocket was closed with 2-0 and 4-0 Vicryl. Skin was closed with simple running subcuticular 5-0 Monocryl and Dermabond was applied across the wound. Patient's previous ILR was inspected. The wound was exposed. The device came out easily and the wound was closed with 4-0 Vicryl. Dermabond was applied across this wound as well. RESULTS: 1. Pacing thresholds; atrial threshold 1.5 V at 0.4 milliseconds, impedance 570 ohms. RV threshold 1 V at 1.0 milliseconds, impedance 760 ohms, . 2. Signal analysis; P-wave amplitude 0.5 mV, R-wave amplitude 6.4 mV. 3. the device was a Medtronic, model W1DR01, serial #[id number]. Atrial lead is Medtronic, model 5076-58, serial #[id number]. The RV lead was a Medtronic, model 3830-69, serial #[id number]. 4. Successful insertion testing of a dual-chamber pacemaker with RV lead placement conducting directly into the left bundle conduction system. 5. Successful removal of an injectable monitor. RECOMMENDATIONS: Antibiotic prophylaxis. Job ID: [id number]
--- NOTE | 2019-05-29 07:24 | HP ---
This is Gemma Romeo NP dictating a report for Flip Correa MD. REASON FOR VISIT: Tachy-melo syndrome; sick sinus syndrome; atrial fibrillation, longstanding persistent. HISTORY OF PRESENT ILLNESS: Mr. Garland is an 84-year-old gentleman with a history of longstanding persistent atrial fibrillation, previously rate controlled. He regularly sees Dr. Caal for Cardiology and also Dr. Abraham for heart failure management. He was started on amiodarone in hopes to restore sinus rhythm. He underwent cardioversion on 05/24/2019, which successfully restored sinus rhythm , but with AV sylvain blocking agents, he converted and came back quite slow, occasionally with junctional bradycardia in the 30s. His digoxin and Toprol were discontinued and by the time he was discharged home, his heart rate had improved into the 60s. He also had loop recorder explant and implant on that day, which was used for long-term arrhythmia monitoring. Transition from his loop recorder yesterday showed that he continued to have occasional junctional bradycardia episodes with frequent pauses over 3 seconds despite stopping his beta-sylvia and digoxin. At that point, we made expedited plans to arrange for a dual-chamber pacemaker to be implanted this morning. He requires continued beta-sylvia therapy for his congestive heart failure, which unfortunately is not possible at this time with also underlying sick node dysfunction. Mr. Garland feels well today. He denies any heart racing, palpitations, chest pain, pressure, syncope, near-syncope, stroke, or stroke-like symptoms. REVIEW OF SYSTEMS: Twelve-point review of systems is negative except as outlined above in the HPI. PAST MEDICAL HISTORY: 1. Longstanding persistent atrial fibrillation, status post ablation including left atrial appendage isolation in May of 2010. 2. Moderate mitral regurgitation. 3. CHADS-VASc score of 3, on Eliquis. 4. Hypertension. 5. Hyperlipidemia. 6. 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 ALLERGIES: NONE. HOME MEDICATIONS: 1. Eliquis 5 mg b.i.d. 2. Atorvastatin 20 mg daily. 3. Nexium 20 mg daily. 4. Allopurinol 300 mg half tab every other day. 5. Spironolactone 25 mg daily. 6. Melatonin as needed. 7. Entresto 24/26 mg b.i.d. 8. Amiodarone 200 mg daily. 9. Torsemide 10 mg daily. 10. Trazodone 50 mg as needed. 11. Ropinirole 0.25 mg at bedtime. PHYSICAL EXAMINATION: VITAL SIGNS: Heart rate is 68, blood pressure is 85/62, oxygenation is 95% on room air, and respirations 14. GENERAL: The patient is alert and oriented. Speech is clear. Affect is appropriate. He is in no apparent distress. Resting comfortably at the time of my exam. NECK: Supple without jugular venous distention. There is no lymphadenopathy. Trachea is midline. CARDIAC: Heart rate is regular and slow. PMI is nondisplaced. No significant murmur, rub, or gallop is appreciated. LUNGS: Clear to auscultation bilaterally without wheezes, crackles, or rhonchi. ABDOMEN: Soft and nontender without palpable masses. EXTREMITIES: Warm and dry to touch without clubbing, cyanosis, or edema. NEUROLOGIC: Grossly intact and nonfocal. Gait was not assessed. IMAGING DATA: EKG today suggests occasional sinus beats with frequent monomorphic PVCs. extensive 1st degree AV block IMPRESSION: 1. Longstanding persistent atrial fibrillation with recent cardioversion, successfully restoring sinus rhythm, on amiodarone. 2. Tachycardia-bradycardia syndrome. 3. Combined systolic and diastolic heart failure requiring beta-sylvia therapy for management, currently [place] [employer] Functional Class I status. 4. Left atrial appendage isolation, requiring lifelong anticoagulation. 5. Sinus node dysfunction. 6. Intraventricular conduction delay. 7. Premature ventricular complexes. 8. 1st degree AV block MEDICAL DECISION MAKING: This was discussed with Mr. Garland how to proceed with his underlying bradycardia. He very clearly demonstrates tachy-melo syndrome, fluctuations between rapid ventricular rates that cause some systolic heart failure, which fortunately has recovered some with the congregational of sinus rhythm. His rhythm today does vary significantly. There do appear to be some sinus beats, but with frequent ectopic beats both from the atria and the ventricles. There are also some junctional bradycardic beats seen. His AV sylvain blocking medications have been discontinued, except he does remain on amiodarone 200 mg daily in an attempt to maintain sinus rhythm. At this point, our recommendation is move forward with a dual-chamber pacemaker in light of his sinus node dysfunction and tachy-melo syndrome, so that we can continue to treat his combined heart failure with beta-blockers and also manage his atrial fibrillation. We discussed the risks, benefits, and alternatives. The patient and his voiced understanding. I have had a chance to ask questions. We will also explant his loop recorder following his device implant. His last dose of Eliquis was yesterday morning, so he held his medication for two doses. He understands the risks of hematoma formation and bleeding at the incision site. Then, we will see him back in 2 weeks for wound check post device implant. This report was conducted by Dr. Flip Correa. Job ID: [id number] [facility]
== END ==
LOC: CCL 08:05
PROVIDERS: ATTEND Internal Medicine Cardiovascular Disease
PROC: 0JPT0PZ Removal of Cardiac Rhythm Related Device from Trunk Subcutaneous Tissue and Fascia, Open Approach (ICD-10-PCS; principal; 2019-05-28)
PROC: 0JH606Z Insertion of Pacemaker, Dual Chamber into Chest Subcutaneous Tissue and Fascia, Open Approach (ICD-10-PCS; 2019-05-28)
DX: I48.11 Longstanding persistent atrial fibrillation (principal); I44.30 Unspecified atrioventricular block; I49.5 Sick sinus syndrome; I11.0 Hypertensive heart disease with heart failure; I50.40 Unspecified combined systolic (congestive) and diastolic (congestive) heart failure; E78.5 Hyperlipidemia, unspecified; Z79.01 Long term (current) use of anticoagulants; Z79.899 Other long term (current) drug therapy
CPT/HCPCS: 33208; 33286; 36005; 71045; 75820; 93005; 93010; 99152; 99153; C1785; C1898; J0690; J1580; J2250; J3010; Q9967

== ENCOUNTER 2019-10-10 10:05 | Inpatient (IN) | payer MEDICARE, BC ==
[2019-10-10] MEDS ORDERED: Ondansetron PF 4 MG/2 ML Vial IVP PRN (11:00)
[2019-10-10] MEDS ORDERED: Ondansetron ODT 4 MG TAB SL PRN (11:00)
--- NOTE | 2019-10-10 11:37 | RAD ---
Exam: Chest one view HISTORY:Weakness. Pacemaker adjustment. Comparison: 05/28/2019 FINDINGS: Cardiac silhouette:Mild enlarged cardiac silhouette main part be due to portable technique Pacemaker: Stable dual lead left-sided transvenous pacemaker Aorta: Unremarkable Pulmonary vessels: Normal Costophrenic angles: Clear LUNGS: No masses or consolidation. Chronic lung parenchymal changes. Pneumothorax: None Osseous abnormalities: None IMPRESSION: No acute cardiopulmonary process.
[2019-10-10 11:46] LABS: #Basophils 0.1 thou/uL (0.0-0.2); #Eosinphils 0.1 thou/uL (0.0-0.7); #Lymphocytes 1.4 thou/uL (1.20-3.40); #Monocytes 0.6 thou/uL (0.11-0.59); #Neutrophils 5.9 thou/uL (1.40-6.50); %Basophils 1.1 % (0.0-1.0); %Eosinophils 0.9 % (0.0-10.0); %Lymphocytes 17.8 % (21.0-51.0); %Monocytes 7.3 % (0.0-10.0); %Neutrophils 72.9 % (42.0-75.0); Hemoglobin 13.6 g/dL (14.0-18.0); Mean Corpuscular HGB CONC 33.6 g/dL (32.0-36.0); Mean Corpuscular Hemoglobin 36.7 pg (27.0-31.0); Mean Platelet Volume 7.4 fL (7.4-10.4); Platelet Count 169 thou/uL (130-400); RBC Distribution Width 12.6 % (11.5-14.5); Red Blood Cell (RBC) Count 3.71 mill/uL (4.70-6.10); White Blood Cell (WBC) Count 8.1 thou/uL (4.8-10.8)
[2019-10-10 12:38] LABS: ALT (SGPT) 23 U/L (8-55); AST (SGOT) 29 U/L (5-34); Albumin 4.3 g/dL (3.4-4.8); Alkaline Phosphatase 81 U/L (40-110); Anion Gap 13 mmol/L (10-20); BUN (Urea Nitrogen) 26 mg/dL (8.4-25.7); Bilirubin, Total 0.6 mg/dL (0.2-1.2); Calc. Creatinine Clearance 0 mL/min (70-130); Calcium 9.5 mg/dL (7.8-10.44); Carbon Dioxide 26 mmol/L (23-31); Chloride 100 mmol/L (98-107); Estimated GFR-MDRD 58; Globulin 3.1 g/dL (2.4-3.5); Glucose 98 mg/dL (83-110); Potassium 4.8 mmol/L (3.5-5.1); Protein, Total 7.4 g/dL (5.8-8.1); Sodium 134 mmol/L (136-145)
[2019-10-10 17:43] LABS: Thyroid Stimulating Hormone 74.2086 uIU/mL (0.35-4.94)
[2019-10-10] MEDS ORDERED: Liothyronine Sodium 5 MCG TAB PO SCH (18:00)
[2019-10-10] MEDS ORDERED: Levothyroxine Sodium 50 MCG TAB PO SCH (18:00)
[2019-10-10] MEDS ORDERED: Cosyntropin 250 MCG VIAL SLOW IVP SCH (18:00)
[2019-10-10] MEDS: Icosapent Ethyl 1 GM CAPSULE PO SCH (18:12)
[2019-10-10] MEDS: Allopurinol 300 MG TAB PO SCH (18:12)
[2019-10-10 18:20] LABS: T4 Less than 2.0 ug/dL (4.87-11.72)
[2019-10-10 18:21] LABS: Free T4 (Free Thyroxine) Less than 0.40 ng/dL (0.70-1.48)
--- NOTE | 2019-10-10 20:25 | HP ---
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 HISTORY OF PRESENT ILLNESS: The patient denies any chest pain, shortness of breath, cough, or any other problems. He was seen by Cardiology PA in the last couple of weeks and there was some adjustment made to his medications, but despite all of this, his blood pressure was running low. Apparently today, he came back to Dr. Abraham's office and his systolic blood pressure was in the mid 70s, so he was sent to the emergency room for further evaluation and admission to the hospital for further management. He has a pacemaker. He is on multiple medications, which is most likely responsible for his hypotension. Blood pressure systolic in the emergency room was noticed around 100. SOCIAL HISTORY: He used to smoke, I believe pipe for short period of time. He drinks alcohol socially. He does not use any illicit drugs. PAST MEDICAL HISTORY: Positive for; 1. Atrial fibrillation. 2. Gastroesophageal reflux disease. 3. Hyperlipidemia. 4. Hypertension. 5. Pacemaker. 6. Osteoarthritis. PAST SURGICAL HISTORY: 1. Atrial fibrillation ablation x2. 2. Broken jaw repair. 3. Hernia repair. 4. Left knee surgery. Surrogate decision maker, the patient's . MEDICATIONS: 1. Allopurinol. 2. Amiodarone. 3. Aspirin. 4. Atorvastatin. 5. Carvedilol. 6. Eliquis. 7. Omeprazole. 8. Spironolactone. 9. Trazodone. 10. Entresto. 11. Vascepa. 12. Ropinirole. This list will be checked before the patient is placed on some of them. ALLERGIES: NONE. REVIEW OF SYSTEMS: All 14-systems were reviewed and they were positive for frequent bleeding nose and easy bruisability. PHYSICAL EXAMINATION: VITAL SIGNS: Blood pressure is 127/89, pulse is 77, respirations 20, temperature is 99.5. HEENT: His head is atraumatic and normocephalic. Eyes are PERRLA. Sclerae are nonicteric. Oral mucosa is moist. NECK: Supple. LUNGS: Clear. HEART: S1, S2 normal. No S3. No S4. ABDOMEN: Soft, nontender, nondistended. EXTREMITIES: No clubbing, cyanosis, or edema. NEUROLOGICAL: He is alert and oriented x4. There is no any motor or sensory deficits present. Cranial nerves are intact. LABORATORY DATA: Labs showed white count of 8.1, hemoglobin 13.6, hematocrit 40.6, platelet count is 169,000. Sodium 134, potassium 4.8, chloride 100, CO2 of 26, BUN 26, creatinine 1.20, TSH 84.96. Cortisol 17.40, albumin 4.3. Chest x-ray did not show any acute abnormalities. This was personally reviewed by me and EKG showed well-functioning dual-chamber pacer. IMPRESSION: 1. Hypotension most likely related to multiple medications use. Most of those medications will be put on hold and the list was reviewed with Dr. Abraham, the patient's nursing agency manager. We will obtain later. 2. Pacer for interrogation. 3. History of atrial fibrillation and status post ablation x2. 4. Elevated TSH, most likely related to amiodarone use. We will obtain free T3 and free T4. 5. Osteoarthritis. 6. Hyperlipidemia. 7. Coronary artery disease. PLAN: Admission for observation. Condition is fair. Activity is bedrest and bathroom privileges. Consultants, Dr. Abraham, Dr. Caal and for electrophysiology evaluation. Continue allopurinol, amiodarone, apixaban, atorvastatin, melatonin, omeprazole, ropinirole. I am holding carvedilol, spironolactone, trazodone, Entresto. We will get echocardiogram and we will do orthostatic changes and he should be able to go home in the next 24 to 48 hours. Job ID: [id number]
[2019-10-10] MEDS ORDERED: Apixaban 5 MG TAB PO SCH (21:00)
[2019-10-10] MEDS ORDERED: Atorvastatin Calcium 20 MG TAB PO SCH (21:00)
[2019-10-10] MEDS: Apixaban 5 MG TAB PO SCH (21:28)
[2019-10-10] MEDS: rOPINIRole HCl 0.25 MG TAB PO SCH (21:28)
[2019-10-10] MEDS: Atorvastatin Calcium 40 MG TAB PO SCH (21:28)
--- NOTE | 2019-10-10 21:58 | CON ---
DATE OF CONSULTATION: 10/10/2019 ADDITIONAL REFERRING PHYSICIAN: Stu Caal MD HISTORY OF PRESENT ILLNESS: I am seeing Mr. Garland at our [facility] Telemetry Floor as an Electrophysiology campaign consultant for the following problems; 1. History of first-degree AV block. a. Status post dual-chamber pacemaker implantation with RV lead bore into the right ventricular septum to enable left bundle capture, currently adequate function. 2. History of persistent atrial fibrillation. a. Status post ablation including left atrial appendage isolation in May 2010. b. Currently on amiodarone for chronic suppression. 3. Systolic/diastolic heart failure. a. 2D echo from 10/10/2019 demonstrates LVEF 40% to 45%, fkzgkxzn-af-xvxudw MR, mild AI, bqgt-vr-zxmyndrr tricuspid regurgitation. 4. Chronic anticoagulation lifelong, hence the history of left atrial appendage isolation. 5. Hypothyroidism, newly found. ALLERGIES: NONE NOTED. MEDICATIONS: At home included; 1. Lipitor. 2. Allopurinol. 3. Apixaban 5 mg twice a day. 4. Prilosec. 5. Melatonin. 6. Ropinirole. 7. Entresto 24/26 one tablet twice a day. 8. Spironolactone 25 mg daily. 9. Trazodone. 10. Amiodarone 200 mg one tablet a day. 11. Bumetanide. SUBJECTIVE: Mr. Garland was admitted Dr. Abraham, after he was found to be markedly hypotensive in the office. He has a history of recent falls while trying to golf at least twice. He had significant bruises because of that. He was evaluated in the ER and his lab work revealed significant elevation of TSH and history of hypothyroidism. He was admitted for further management. I was consulted to evaluate his pacing action, hence history of atrial fibrillation by Dr. Abraham. Currently, he seems to be doing fair, not complaining of significant dyspnea in the bed. He appears to be somewhat slower mentally than I expected. He denies PND or orthopnea. No stroke-like symptoms. No neurological deficits are noted. There is no fever, chills, or cough. Again, bruise related blood loss, but no recent GI bleed or hematuria is documented. There is no abdominal/gastrointestinal symptoms. Rest of 12-point system otherwise unremarkable. PAST MEDICAL HISTORY: As above. This gentleman has had persistent atrial fibrillation repeat ablation by Dr. Correa back in 2009 and 2010. His history also includes left atrial appendage isolation making him necessary for oral anticoagulation. He also had significant first-degree AV block post cardioversion in May when he received a dual-chamber pacemaker with the RV lead more into the interatrial septum with the hopes of pacing the left bundle. He has a history of hypertension, hyperlipidemia, and mitral valve disease as well with gdreqjxe-wg-geyqmx MR in the past. SOCIAL HISTORY: He is . Denies smoking, EtOH, or drug abuse. He is an avid golfer. FAMILY HISTORY: Not contributory. OBJECTIVE DATA: VITAL SIGNS: Blood pressure currently 127/89, heart rate 77, respiratory rate 20, and temperature 99.5 degrees Fahrenheit. GENERAL: Alert and oriented man, in no apparent distress. NECK: Supple. Jugular veins not distended. CHEST: Coarse without crackles. HEART: Sounds are regular to rate and rhythm. A 1/6 holosystolic murmur is heard. No gallop is appreciated. The left precordial pacemaker insertion site is well healed. ABDOMEN: Benign. Bowel sounds positive. EXTREMITIES: Lower extremities without edema, clubbing, or cyanosis. DATABASE: EKG today reveals atrial and ventricular paced rhythm with a relatively narrow QRS at 180 milliseconds noted. LABORATORY DATA: White cell count 8.1 hemoglobin 13.6, and platelet count 169. Sodium 134, potassium 4.8, BUN is 26, creatinine 1.2, and AST and ALT are 29 and 23. Troponin I 0.016 and BNP is 50. TSH is though 84.96. Cortisol is 17.4. A 2D echo from today reveals LVEF 40% to 45%, mild left atrial enlargement, mild LV size increased, qysfdcut-am-dopjly MR, mild AI, and odvk-kz-ugbqxabo TR. ASSESSMENT AND PLAN: Mr. Garland is a pleasant 84-year-old man with prior history of atrial arrhythmias repeat ablation, now maintaining sinus rhythm on amiodarone. He also had left atrial appendage isolation rendering him for lifelong anticoagulation. He is admitted with significant hypotension and possibly related recent falls by Dr. Abraham. He is noted to be markedly hypothyroid with elevated TSH levels. He also has a dual-chamber pacemaker in place with the RV lead board into interatrial septum pacing the left bundle. A 2D echo was performed to assess the efficacy of this. By Dr. Abraham's report, dyssynchrony is present during pacing. We discussed future plans if indeed have dyssynchrony present with RV septal pacing, additional LV lead placement and biventricular stimulation could help his LV contractions and possibly heart failure symptoms with that. On the other hand, the marked hypothyroidism could also contribute to symptoms and I would prefer some degree of improvement of his thyroid levels by replacement of the thyroid prior to him undergoing a surgical procedure. We also discussed the need for anticoagulation, hence the history of left atrial appendage isolation. Dual-chamber pacing otherwise seems to be functioning adequately. I will follow up with you. Thank you for the consult. Job ID: [id number] MTDD
--- NOTE | 2019-10-10 22:04 | CON ---
DATE OF CONSULTATION: HISTORY OF PRESENT ILLNESS: The patient is an 84-year-old gentleman with history of a cardiomyopathy, who presented with hypotension. The patient has a long history of cardiomyopathy. He is followed in the [facility]. He has previously had undergone placement of an electronic ventricular pacemaker. He was most recently underwent a cardiac catheterization which revealed him to have a 90% RCA lesion and the patient has been placed on medical therapy. The patient also has a history of atrial fibrillation, is on amiodarone. The patient was in his usual state of health when he went to [facility] and apparently had severe hypotension. The patient did not feel dizzy or lightheaded. He denies having any syncope. The patient denied having any chest discomfort or dyspnea. PAST MEDICAL HISTORY: 1. Cardiomyopathy. 2. Atrial fibrillation. 3. Hypertension. 4. Hyperlipidemia. 5. Prostate carcinoma. PAST SURGICAL HISTORY: Hernia surgery, knee surgery, and jaw surgery. SOCIAL HISTORY: Nonsmoker. MEDICATIONS: Include, 1. Vascepa 1 tablet twice a day. 2. Aspirin 81 daily. 3. Spironolactone 25 daily. 4. Entresto 24/26 daily. 5. Eliquis 5 daily. 6. Lipitor 80 at bedtime. 7. Amiodarone 200 daily. 8. Prilosec 20 daily. 9. Trazodone 50 mg p.o. daily. SOCIAL HISTORY: Nonsmoker. ALLERGIES: NO KNOWN DRUG ALLERGIES. PHYSICAL EXAMINATION: GENERAL: This is an obese gentleman, in no acute distress. VITAL SIGNS: Blood pressure 127/89. NECK: No jugular venous distention. LUNGS: Clear to auscultation. HEART: Regular rate and rhythm. Normal S1 and S2. ABDOMEN: Nondistended. EXTREMITIES: Showed no edema. VASCULAR: Radial pulse 2+. LABORATORY DATA: Sodium 134, potassium 4.8, chloride 100, bicarbonate 26, BUN 26, and creatinine 1.2. His BNP is 50. TSH is 84. White blood cell count 8.1, hemoglobin 13.6, hematocrit 40.6, platelets 169. EKG Dual chamber electronic pacemaker. IMPRESSION: 1. Hypotension. 2. Cardiomyopathy. 3. Atrial fibrillation. 4. History of pacemaker placement. 5. Coronary artery disease. This gentleman presents with hypotension. He did recently have the dose of his trazodone increased. From a cardiac standpoint, this may be secondary to the increasing dose of this medication or could be from his severe hypothyroidism. We will obtain a complete thyroid panel. We will check the patient's echocardiogram. We will follow this patient with you through his hospitalization. Job ID: [id number] MTDD
[2019-10-10] MEDS: Melatonin 3 MG TAB PO PRN (23:21)
[2019-10-11 05:06] LABS: Anion Gap 13 mmol/L (10-20); BUN (Urea Nitrogen) 24 mg/dL (8.4-25.7); Calc. Creatinine Clearance 57 mL/min (70-130); Calcium 8.5 mg/dL (7.8-10.44); Carbon Dioxide 22 mmol/L (23-31); Chloride 99 mmol/L (98-107); Estimated GFR-MDRD 58; Glucose 111 mg/dL (83-110); Sodium 130 mmol/L (136-145)
[2019-10-11] MEDS: Levothyroxine Sodium 50 MCG TAB PO SCH (05:22)
[2019-10-11 05:37] VITALS: BMI 26.0
--- NOTE | 2019-10-11 07:16 | CON ---
DATE OF CONSULTATION: 10/10/2019 REASON FOR CONSULT: Management of hypotension and severe hypothyroidism in a patient with history of heart failure. HISTORY OF PRESENT ILLNESS: Mr. Livan Garland, 84-year-old gentleman with sick sinus syndrome who is pacemaker dependent and coronary artery disease with history of heart failure with reduced ejection fraction, presented with hypotension. In June and July 2019, Mr. Garland was doing quite well. He can do all his daily activities and walk a mile without any problems. Due to COVID-19, he was not seen in clinic, but done via telephone interviews. 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 He fell on his face. He was seen by a nurse practitioner in the clinic and was found to have a blood pressure in the high 70 over 50s. His medications especially Entresto was halved and I believe, his spironolactone might have been held and then he came back in clinic today for followup. When he walked in, he looked very tired. He was sluggish in speaking. He had difficulty with mentation. His heart rate was paced at 60. His systolic blood pressure was about 75/46, this was measured by 3 different people, myself, and 2 nurses, we all had the same numbers with systolic blood pressure around the 70s. His pacemaker was interrogated and reprogrammed. His lower rate limit was increased to 70 beats per minute, he seemed to have some regaining blood pressure. He was taken down to the ER. Eventually, he was admitted. His TSH was found to be 85. He did not receive any IV fluids. Over time, his blood pressure seemed to come back up with an increased pacing rate alone. PAST MEDICAL HISTORY: 1. History of heart failure with reduced ejection fraction. On last echo, EF was about 40%. New one is being done today. 2. Coronary artery disease with significant stenosis in the right coronary artery. 3. Hyperlipidemia. 4. History of heart failure with reduced ejection fraction. 5. Sick sinus syndrome with heart rate down in the 30s needing a pacemaker. 6. High-degree AV block needing a pacemaker. SOCIAL HISTORY: 1. He stopped smoking back in 1974. Has not smoked since. 2. Alcohol: He is an occasional wine drinker. 3. He denies any illicit drug use. 4. He is to his over 60 years. They are still together. 5. 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 FAMILY HISTORY: 1. His father of myocardial infarction in early 60s. 2. His mother of a cancer in age 50s. 3. He has one twin brother who is without any health problems. REVIEW OF SYSTEMS: GENERAL: He may have been a little more fatigued and sleepy recently. He denies any fever, chills, productive cough, runny nose, sore throat or any coronavirus like symptoms. HEENT: There is no changing in vision, hearing, or swallowing. PULMONARY: He says he is breathing easily. He is not short of breath. CARDIAC: He denies chest pains, palpitations, orthopnea, PND, or peripheral edema. He still sleeps on 1 pillow. He does not wake up in the middle of the night. GI: He is eating well. : He is not complaining of difficulty urination. MUSCULOSKELETAL: He has no joint pains or muscle pains NEUROLOGIC: He has no complaints of focal deficits or weakness; however, his legs are restless at night ALLERGIES/SENSITIVITIES: He has no known drug allergies. CURRENT MEDICATIONS: In the hospital, include: 1. Allopurinol 150 mg daily. 2. Amiodarone 200 mg daily. 3. Apixaban 5 mg twice a day. 4. Atorvastatin 80 mg p.o. nightly. 5. Melatonin 3 mg each night. 6. Vascepa 2 g b.i.d. 7. Protonix 40 mg daily. 8. Ropinirole 0.25 mg p.o. nightly. 9. Sacubitril/valsartan (Entresto) 24/ p.o. b.i.d. PHYSICAL EXAMINATION: VITAL SIGNS: His latest physical exam is recorded as heart rate of 77, blood pressure 127/89. GENERAL: He is alert and conversational. He is more with it now than he was at clinic today. HEENT: Shows EOMI. Oropharynx is benign with moist mucosa. JVP was 9 cm with positive hepatojugular reflux. PULMONARY: His lungs have good air movement. Clear to auscultation bilaterally. CARDIAC: He has paced rhythm. Regular rate and rhythm, with 2/6 holosystolic murmur at the apex with radiation to the left axilla, there is very soft 1/6 diastolic murmur at the right sternal border. ABDOMEN: Soft, nontender. Positive bowel sounds. EXTREMITIES: Lower extremities, they are cool. There are slightly perceptible dorsalis pedis pulses. There is a slight pitting edema around the feet and up to ankles, more prominent on the left. LABORATORY DATA: Sodium 134, potassium 4.8, BUN 26, creatinine 1.2, total bilirubin 0.6, AST 29, ALT 23. He has a very high TSH of 84.96, which is 85. His albumin is 4.3. ECHOCARDIOGRAM: The echocardiogram was done and reviewed with synchrony study. Here is my read. At pacing, his LVEF is about 35%. He has moderate mitral regurgitation, also mild aortic regurgitation with pacing. He has great amount of dyssynchrony. The right ventricle and the left ventricle seemed to contract near complete out of phase with each other. Strain analysis was done from different segments during pacing. The timing delay at the point of maximal strain can vary between 200 to 300 milliseconds. The strain analysis was also done with off pacing. With off pacing, his heart rate dropped down in the 30s, but there is bigeminy. However, his ejection fraction improved to close to 50% with not pacing. During non-pacing, there was still gqajxn-ph-hhuxiiy wall dyssynchrony. There is about 67 millisecond delay. So, this was done with the aid of ultrasonic voip technician. ASSESSMENT: 84-year-old gentleman who has most likely severe hypothyroidism causing hypotension and syncopal events at home. This is very severe and needs to be corrected quickly and immediately. However, he also has dyssynchrony seen on echocardiogram. However, due to the severity of hypothyroidism, his dyssynchrony will need to be addressed later on. Later, he could benefit from a left ventricular lead to coordinate his wmngtn-ib-vchwjmp wall contraction. The dyssynchrony could have explained his long-standing low blood pressure. Please see the following for my recommendations. RECOMMENDATIONS: 1. Reduce Entresto down to half tablet twice a day because that is all he was taking at home. It may even have to be held. 2. Continue Eliquis at 5 mg p.o. b.i.d. just for his weight and relatively normal renal function. 3. Please do Cortrosyn stimulation test by first doing a cortisol level followed by Cortrosyn 250 mcg and then remeasure cortisol at 30 minutes later and 1 hour later. 4. Please do T3, T4. 5. After the labs are drawn, please start levothyroxine which is Synthroid 50 mcg daily, first dose tonight. 6. After the labs are drawn, please also start synthetic T3, which is liothyronine at 5 mcg daily. 7. Depending on his cortisol response, we may also need to supplement with hydrocortisone during stress. 8. If the patient's systolic blood pressure drops below 95 mmHg, then start dobutamine at 2.5 mcg/kg per minute IV GTT. It has been a pleasure taking care of Mr. Livan Garland. If you have any questions, please give me a call. Job ID: [id number] MTDD
[2019-10-11] MEDS ORDERED: Cosyntropin 250 MCG VIAL SLOW IVP SCH (08:00)
--- NOTE | 2019-10-11 08:35 | PDOC.EP ---
- Subjective Date: 10/11/19 Time: 08:33 - Review of Systems Constitutional: denies: chills, fever, malaise, sweats, weakness, other Respiratory: denies: cough, dry, hemoptysis, pleuritic pain, shortness of breath , SOB with excertion, sputum, wheezing, other Cardiology: denies: chest pain, edema, heart racing, light headedness, paroxysmal noc. dyspnea, orthopnea, palpitations, passing out, pleuritic pain, pressure, swelling, other Gastrointestinal: denies: abdominal pain, constipation, diarrhea, hematochezia, melena, nausea, vomitting, other - Objective Allergies/Adverse Reactions: Allergies Allergy/AdvReac Type Severity Reaction Status Date / Time No Known Allergies Allergy Verified 10/10/19 16:51 Current Medications Allopurinol (Zyloprim) 150 mg PO Q2D [facility] Last Admin: 10/10/19 18:12 Dose: 150 mg Amiodarone HCl (Cordarone) 200 mg PO DAILY [facility] Apixaban (Eliquis) 5 mg PO BID [facility] Last Admin: 10/10/19 21:28 Dose: 5 mg Atorvastatin Calcium (Lipitor) 80 mg PO HS [facility] Last Admin: 10/10/19 21:28 Dose: 80 mg Cosyntropin (Cortrosyn) 250 mcg SLOW IVP 0800 [facility] Stop: 10/11/19 10:00 Levothyroxine Sodium (Synthroid) 50 mcg PO 0600 [facility] Last Admin: 10/11/19 05:22 Dose: 50 mcg Liothyronine Sodium (Cytomel) 5 mcg PO QAM [facility] Melatonin (Melatonin) 3 mg PO HSPRN PRN PRN Reason: Insomnia Last Admin: 10/10/19 23:21 Dose: 3 mg Miscellaneous Medication (Vascepa) 2 gm PO BID-WM [facility] Last Admin: 10/10/19 18:12 Dose: 2 gm Pantoprazole Sodium (Protonix) 40 mg PO DAILY [facility] Pneumococcal 13-Valent Conj Vacc (Prevnar) 0.5 ml IM .ONCE ONE Stop: 10/11/19 15:46 Ropinirole HCl (Requip) 0.25 mg PO [facility] Last Admin: 10/10/19 21:28 Dose: 0.25 mg Sacubitril/Valsartan (Entresto 24 Mg-26 Mg Tablet) 0.5 tab PO BID [facility] Last Admin: 10/10/19 21:28 Dose: 0.5 tab Vital Signs & Weight: Vital Signs Temp Pulse Resp BP BP BP Pulse Ox 10/11/19 03:20 97.8 F 77 17 96/65 98/63 92/63 99 10/11/19 00:00 101/63 10/10/19 22:00 97.9 F 72 16 91/54 L 96 Weight 187 lb I/O: I/O 10/10/19 10/11/19 10/12/19 06:59 06:59 06:59 Intake Total 300 Balance 300 - Physical Exam General: alert & oriented x3 HEENT: mucus membranes moist Neck: supple neck, no thromegaly Cardiology: regular rate Lungs: clear to auscultation, normal breath sounds, no wheezes, no rales Neurology: grossly intact Abdomen: unremarkable, active bowel sounds, non-tender Extremities: dry, + edema B (1+ bilateral) Musculoskeletal: no pain - Chadsvasc Risk factors Congestive heart failure: 1 Hypertension: 1 Age >75: 2 (Has ALONA isolation per history) Risk Score: 4 - Labs Result Diagrams: 10/10/19 11:33 10/11/19 04:23 - EKG Interpretation EKG Method: Telemetry (Sr/intermittent V pacing) - Device Device: dual (LBBB pacing Rv lead) Device Result: Medtronic (Adequate capture) - Problem (1) Hypotension Qualifiers: Hypotension type: orthostatic hypotension Qualified Code(s): I95.1 - Orthostatic hypotension (2) Hypothyroidism (acquired) Code(s): E03.9 - HYPOTHYROIDISM, UNSPECIFIED (3) First degree AV block Code(s): I44.0 - ATRIOVENTRICULAR BLOCK, FIRST DEGREE (4) Pacemaker ECG pattern Code(s): Z95.0 - PRESENCE OF CARDIAC PACEMAKER - Assessment/Plan Assessment/Plan: ASSESSMENT AND PLAN: Mr. Garland is a pleasant 84-year-old man with prior history of atrial arrhythmias repeat ablation, now maintaining sinus rhythm on amiodarone. He also had left atrial appendage isolation rendering him for lifelong anticoagulation. He is admitted with significant hypotension and possibly related recent falls by Dr. Abraham. He is noted to be markedly hypothyroid with elevated TSH levels. He also has a dual-chamber pacemaker in place with the RV lead board into interatrial septum with the hope of pacing the left bundle. A 2D echo was performed to assess the efficacy of this. By Dr. Abraham's report, dyssynchrony is present during pacing. 1. History of first-degree AV block. a. Status post dual-chamber pacemaker implantation with RV lead more into the right ventricular septum to enable left bundle conduction, currently adequate function. 2. History of persistent atrial fibrillation. a. Status post ablation including left atrial appendage isolation in May 2010. b. Currently on amiodarone for chronic suppression. 3. Systolic/diastolic heart failure. a. 2D echo from 10/10/2019 demonstrates LVEF 40% to 45%, [id number] MR, mild AI, [id number] tricuspid regurgitation. 4. Chronic anticoagulation lifelong, hence the history of left atrial appendage isolation. 5. Hypothyroidism, newly found. 6. Mod MR We discussed future plans if indeed have dyssynchrony present with RV septal pacing, additional LV lead placement and biventricular stimulation could help his LV contractions and possibly heart failure symptoms with that. On the other hand, the marked hypothyroidism could also contribute to symptoms and I would prefer some degree of improvement of his thyroid levels by replacement of the thyroid prior to him undergoing a surgical procedure. We also discussed the need for anticoagulation, hence the history of left atrial appendage isolation. Dual-chamber pacing otherwise seems to be functioning adequately. 10/11/19: Thyroid replacement has been initiated. Pt CHF status stable. Will check 10/13 to evalute status.
[2019-10-11] MEDS: Apixaban 5 MG TAB PO SCH ×2 (08:45→20:52)
[2019-10-11] MEDS: Icosapent Ethyl 1 GM CAPSULE PO SCH ×2 (08:45→17:33)
[2019-10-11] MEDS: Amiodarone 200 MG TAB PO SCH (08:45)
[2019-10-11] MEDS ORDERED: Liothyronine Sodium 5 MCG TAB PO SCH (09:00)
[2019-10-11] MEDS ORDERED: Fludrocortisone Acetate 0.1 MG TAB PO SCH (11:15)
[2019-10-11] MEDS: Hydrocortisone Sod Succ/PF 100 mg/2 ml Vial IVP SCH ×2 (12:02→23:52)
--- NOTE | 2019-10-11 12:03 | PRG ---
DATE OF SERVICE: 10/11/2019 SUBJECTIVE: Mr. Livan Garland had a good night. He said he was able to sleep. He does have some restless legs. It was discovered that his TSH was 85. That shows extreme hypothyroidism and the laboratory value had an extraordinarily low T4. Thyroid supplementation was started. Cortrosyn stimulation test was attempted yesterday afternoon. However, collection was off and that was not done. Right now, he is feeling better in general except that he is feeling cold. REVIEW OF SYSTEMS: GENERAL: There is no fever, chills, productive cough. HEENT: There is no change in vision, hearing, or swallowing. PULMONARY: He is breathing well. No shortness of breath. CARDIAC: There is no complaint of chest pains or syncope. GI: He is eating well. : There is no difficulty with urination. MUSCULOSKELETAL: There are no complaints of diffuse muscle and joint pains. INTEGUMENT: There is no new skin breakdown. NEUROLOGIC: There are no new focal deficits or weakness. However, he does have chronic restless legs syndrome. MEDICATIONS: Include 1. Amiodarone 200 mg daily. 2. Apixaban 5 mg b.i.d. 3. Atorvastatin 80 mg p.o. at bedtime. 4. Synthroid 50 mcg daily. 5. Liothyronine, which is T3, at 5 mcg at bedtime. 6. Melatonin at 3 mg. 7. Vascepa 2 g p.o. b.i.d. 8. Protonix 40 mg daily. 9. Entresto 24/26 mg combination at half tablet b.i.d. Telemetry was reviewed. It is a mixture because he has AV paced with bigeminy. There is some PVC but there is no concerning arrhythmia. OBJECTIVE: VITAL SIGNS: Heart rate on average about 77, systolic blood pressure between 92 to 98 and diastolic pressure between 63 and 65. GENERAL: He is alert and conversational, sitting comfortably in the couch. He was kind of wobbly, going from couch to the bed. He is definitely unsteady. HEENT: Show EOMI. Oropharynx is benign with moist mucosa. NECK: JVP is about 9 cm with positive hepatojugular reflux. LUNGS: Clear to auscultation bilaterally. CARDIAC: Regular with occasional irregularity with S1 and S2, there is 2/6 holosystolic murmur at the apex with radiation to the left axilla. There is also 1/6 diastolic murmur at the right lower sternal border. ABDOMEN: Soft, nontender. Positive bowel sounds. His lower extremity has minimal pedal edema with diminished dorsalis pedis pulses. INTEGUMENT: Surprisingly dark all over. That is without much sun exposure. Thus, he may have [place] disease. LABORATORY DATA: Include sodium 130, potassium 4, bicarbonate 22, BUN 24, creatinine 1.2, glucose 111. His T4 is less than 0.04, which is the detection limit. 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 His decreased mentation, hypotensive state and not walking that well points to this. He also has a low sodium value that is out of proportion to lack of edema. He has also had a normal BNP, he is also adrenal insufficient, so this also needs to be addressed. He does have a sick sinus syndrome, but then his AV pacing is producing significant amount of desynchrony. All of these problems will need to be addressed. Please see these for the following detailed recommendations. RECOMMENDATION: 1. Start hydrocortisone 50 mg IV q.6 hours now. 2. Start fludrocortisone 0.1 mg p.o. daily, first dose now. 3. Redo transthoracic echocardiogram on limited basis to document dyssynchrony. This is needed for guidance. 4. We will consider transfer to [facility] for management of myxedema because there is no family practitioner consult available as locally at [facility]. Together with cardiomyopathy and desynchrony, this could be beyond the capability at this institution. The patient does want a transfer to [facility]. PROCEDURES: INTERROGATION/TTE/REPPROGRAMMING Echocardiogram dyssynchrony study was done. DDDR at 70 Radial strain: septal to basal lateral wall peak timing difference of 166 ms Longitudinal strain: Basal anterior septum to basal inferior timing difference of 167 ms Maximum timing between lateral and anterior septum 366 ms AAAI at 70 (A-paced only) Radial strain: septal to basal lateral wall peak timing difference of 166 ms No pacing Radial Radial strain: septal to basal lateral wall peak timing difference of 166 ms (no change from AAAI Increasing AV pacing delay from 180ms to 200 ms improved EF to ~ 55% and improved synchrony'; but further increase to 220 ms increased dyssynchrony again Pacemaker interrogation and programming - [employer] Ene XT DR MRI [id number], SN [id number] - was DDDR at 70 BPM; left at DDDR because AAAI did worse - high A-lead threshold of 2V - AV delay now programmed at 200 ms It has been a pleasure taking care of Mr. Garland. If you have questions, please give me a call. Job ID: [id number] MTDGerman
[2019-10-11] MEDS ORDERED: DOBUTamine 500 mg/250 ml 500 MG in Premix Bag 1 BAG IVPB SCH (15:00)
[2019-10-11] MEDS ORDERED: Prevnar 13-Val Conj/PF 0.5 ML SYRINGE IM ONE (15:45)
--- NOTE | 2019-10-11 15:56 | PDOC.HOSPP ---
- Subjective Encounter Date: 10/11/19 Encounter Time: 15:53 Subjective: Mr. Garland was seen today in follow-up of pre-syncope, hypothyroidism, and adrenal insufficiency. He does not have any new complaints. He says he feels fine now. - Objective Vital Signs & Weight: Vital Signs (12 hours) Temp Pulse Resp BP BP Pulse Ox 10/11/19 12:10 97.6 F 88 16 101/68 97 10/11/19 08:44 97.9 F 71 16 103/66 96 Weight Weight 187 lb I&O: 10/10/19 10/11/19 10/12/19 06:59 06:59 06:59 Intake Total 300 Balance 300 Result Diagrams: 10/10/19 11:33 10/11/19 04:23 Hospitalist ROS - Medication Medications: Active Medications Generic Name Dose Route Start Last Admin Trade Name Freq PRN Reason Stop Dose Admin Allopurinol 150 mg 10/10/19 15:15 10/10/19 18:12 Zyloprim PO 150 mg Q2D [facility] Administration Amiodarone HCl 200 mg 10/11/19 09:00 10/11/19 08:45 Cordarone PO 200 mg DAILY [facility] Administration Apixaban 5 mg 10/10/19 21:00 10/11/19 08:45 Eliquis PO 5 mg BID [facility] Administration Atorvastatin Calcium 80 mg 10/10/19 21:00 10/10/19 21:28 Lipitor PO 80 mg HS [facility] Administration Hydrocortisone Sodium Succinate 50 mg 10/11/19 12:00 10/11/19 12:02 Solu-Cortef IVP 50 mg 0000,1200 [facility] Administration Dobutamine HCl/Dextrose 500 mg 250 mls @ 6.36 mls/hr 10/11/19 15:00 10/11/19 15:29 / Device IVPB 250 mls INF [facility] Administration Protocol 2.5 MCG/KG/MIN Levothyroxine Sodium 50 mcg 10/11/19 06:00 10/11/19 05:22 Synthroid PO 50 mcg 0600 [facility] Administration Liothyronine Sodium 5 mcg 10/11/19 09:00 10/11/19 08:45 Cytomel PO 5 mcg QAM [facility] Administration Melatonin 3 mg 10/10/19 15:09 10/10/19 23:21 Melatonin PO 3 mg HSPRN PRN Administration Insomnia Miscellaneous Medication 2 gm 10/10/19 17:00 10/11/19 08:45 Vascepa PO 2 gm BID-WM [facility] Administration Pantoprazole Sodium 40 mg 10/11/19 09:00 10/11/19 08:45 Protonix PO 40 mg DAILY [facility] Administration Ropinirole HCl 0.25 mg 10/10/19 21:00 10/10/19 21:28 Requip PO 0.25 mg HS [facility] Administration Sacubitril/Valsartan 0.5 tab 10/10/19 21:00 10/11/19 08:45 Entresto 24 Mg-26 Mg Tablet PO 0.5 tab BID [facility] Administration - Exam Eye: PERRL, anicteric sclera Heart: RRR, no murmur, no gallops, no rubs, normal peripheral pulses Respiratory: CTAB, no wheezes, no rales, no ronchi, normal chest expansion Gastrointestinal: soft, non-tender, non-distended, normal bowel sounds, no palpable masses Extremities: no cyanosis, no edema Hosp A/P (1) Hypotension Status: Acute Qualifiers: Hypotension type: orthostatic hypotension Qualified Code(s): I95.1 - Orthostatic hypotension (2) Atrial fibrillation Code(s): I48.91 - UNSPECIFIED ATRIAL FIBRILLATION Status: Chronic (3) Adrenal insufficiency Code(s): E27.40 - UNSPECIFIED ADRENOCORTICAL INSUFFICIENCY Status: Acute (4) Hypothyroidism (acquired) Code(s): E03.9 - HYPOTHYROIDISM, UNSPECIFIED Status: Acute (5) Chronic systolic heart failure Code(s): I50.22 - CHRONIC SYSTOLIC (CONGESTIVE) HEART FAILURE Status: Chronic - Plan * Hypotension- likely multi-factoral- due to hypothyroidism and adrenal insufficiency. * Hypothyroidism- agree with Synthroid, he may not need T3 supplementation as this may exacerbate AFIB * Adrenal Insufficiency- not as clear. He appears to have had some response to ACTH, at least 10%- Would await Endocrinology evaluation * Atrial Fibrillation- his heart rate is controlled, and continue Eliquis for CVA prevention * Chronic systolic heart failure- continue as per the Cardiology team * Plan is for transfer to [facility] for Endocrinology evaluation
[2019-10-11] MEDS: rOPINIRole HCl 0.25 MG TAB PO SCH (20:52)
[2019-10-11] MEDS: Atorvastatin Calcium 40 MG TAB PO SCH (20:52)
[2019-10-11] MEDS: Melatonin 3 MG TAB PO PRN (20:52)
[2019-10-12] MEDS ORDERED: traZODone HCl 50 MG TAB PO SCH (01:30)
[2019-10-12] MEDS: Levothyroxine Sodium 50 MCG TAB PO SCH (06:07)
[2019-10-12] MEDS: Amiodarone 200 MG TAB PO SCH (08:07)
[2019-10-12] MEDS: Icosapent Ethyl 1 GM CAPSULE PO SCH (08:07)
[2019-10-12] MEDS: Apixaban 5 MG TAB PO SCH (08:07)
[2019-10-12] MEDS ORDERED: Fludrocortisone Acetate 0.1 MG TAB PO SCH (09:00)
[2019-10-12 09:05] LABS: #Lymphocytes 1.2 thou/uL (1.20-3.40); #Monocytes 0.4 thou/uL (0.11-0.59); #Neutrophils 9.6 thou/uL (1.40-6.50); %Basophils 0.2 % (0.0-1.0); %Eosinophils 0.2 % (0.0-10.0); %Lymphocytes 10.8 % (21.0-51.0); %Monocytes 3.3 % (0.0-10.0); %Neutrophils 85.6 % (42.0-75.0); Hemoglobin 13.3 g/dL (14.0-18.0); Mean Corpuscular HGB CONC 33.2 g/dL (32.0-36.0); Mean Corpuscular Hemoglobin 36.3 pg (27.0-31.0); Mean Platelet Volume 7.1 fL (7.4-10.4); Platelet Count 181 thou/uL (130-400); RBC Distribution Width 12.6 % (11.5-14.5); Red Blood Cell (RBC) Count 3.67 mill/uL (4.70-6.10); White Blood Cell (WBC) Count 11.2 thou/uL (4.8-10.8)
[2019-10-12 09:15] LABS: INR-International Normal Ratio 1.3; PTT 38.6 sec (22.9-36.1)
[2019-10-12 09:29] LABS: ALT (SGPT) 18 U/L (8-55); AST (SGOT) 21 U/L (5-34); Alkaline Phosphatase 70 U/L (40-110); Anion Gap 15 mmol/L (10-20); BUN (Urea Nitrogen) 21 mg/dL (8.4-25.7); Bilirubin, Total 0.6 mg/dL (0.2-1.2); Calc. Creatinine Clearance 53 mL/min (70-130); Calcium 8.7 mg/dL (7.8-10.44); Carbon Dioxide 23 mmol/L (23-31); Chloride 99 mmol/L (98-107); Estimated GFR-MDRD 54; Globulin 2.6 g/dL (2.4-3.5); Glucose 202 mg/dL (83-110); Magnesium 2.1 mg/dL (1.6-2.6); Potassium 3.7 mmol/L (3.5-5.1); Protein, Total 6.6 g/dL (5.8-8.1); Sodium 133 mmol/L (136-145)
[2019-10-12] MEDS ORDERED: Sodium Chloride 0.9% 500 ML IVPB SCH ×2 (10:00→11:30)
[2019-10-12] MEDS ORDERED: Potassium Chloride 20 MEQ TAB PO SCH (12:00)
[2019-10-12] MEDS ORDERED: Hydrocortisone Sod Succ/PF 100 mg/2 ml Vial IVP SCH (12:00)
--- NOTE | 2019-10-12 12:40 | PRG ---
DATE OF SERVICE: 10/12/2019 SUBJECTIVE: Mr. Livan Garland had a very variable day. Yesterday, he dropped his blood pressure down to the low 80s. He required dobutamine for his support. With dobutamine support, his blood pressure went to 100 to 120. A bedside limited echocardiogram with strain study for dyssynchrony was done. It showed that he has greater than 160 milliseconds of timing difference between septal and lateral dave at orthogonal views of radial strain and longitudinal strain. The dyssynchrony seen on radial strain did not change with A pacing or no pacing at all. He did well with the dobutamine, overnight he had increased urination, he woke up this morning more energetic. His said he is more energetic. Unfortunately, his blood pressure started to drop sometime after breakfast. He went as low systolic blood pressure around 74. He was having some ectopy at the time and there was a bigeminy. During those bigeminy episodes, he does not have a good perfusion pulse. His pacemaker was interrogated and adjusted. After multiple trials, a DDDR scheme at 80 beats per minute provided a good steady pulse and his systolic blood pressure went up to in the mid 80s. He was asymptomatic throughout this time. REVIEW OF SYSTEMS: GENERAL: There is no fever, chills, or productive cough. PULMONARY: There is no shortness of breath. CARDIAC: There are no chest pains or syncope. GI: He is eating well. : He is urinating well. MUSCULOSKELETAL: There are no complaints of new joint or muscular pains. INTEGUMENT: There is no new skin breakdown. NEUROLOGIC: There is no acute focal deficits or weaknesses. MEDICATIONS: 1. Allopurinol 150 mg every other day. 2. Amiodarone 200 mg daily. 3. Apixaban at 5 mg b.i.d. 4. Atorvastatin 80 mg at bedtime. 5. Dobutamine currently at 2.5 mcg/kg. 6. Fludrocortisone 0.1 mg daily. 7. Hydrocortisone 50 mg IV, currently only scheduled at q.12 h. 8. Levothyroxine 50 mcg p.o. daily. 9. Melatonin 3 mg each night. 10. Vascepa 2 g p.o. b.i.d. 11. Protonix 40 mg daily. 12. Ropinirole 0.25 mg at bedtime. PHYSICAL EXAMINATION: Telemetry was reviewed. Overnight he seemed to have a lot of different ectopy. There are lots of irregular rhythm. It looks like atrial fibrillation at times , a lot of APCs and there is also mixed paced beats. VITAL SIGNS: His latest heart rate 80 and blood pressure 89/60. GENERAL: He is alert and conversational, resting comfortably in bed. HEENT: EOMI. Oropharynx is benign with moist mucosa. NECK: His JVP is about 9 cm with negative hepatojugular reflux. LUNGS: Clear to auscultation bilaterally. HEART: Regular rate and rhythm with occasional irregularity. There is 2/6 holosystolic murmur at apex with radiation left axilla. There is 1/6 diastolic murmur at the right lower sternal border. The holosystolic murmur is near the apex. ABDOMEN: Soft, nontender, positive bowel sounds. EXTREMITIES: Lower extremities are without edema, positive dorsalis pedis pulses. However, his feet are cold. LABORATORY DATA: His sodium increased from 130 to 133 with stress dose steroids supplementation. His potassium decreased slightly from 4.0 down to 3.7. His BNP is only 67. His BUN is 21, creatinine is 1.28. His magnesium is 2.1 and albumin is 4.0. Cortisol stimulation test was done yesterday. The basal value before Cortrosyn was 20.8, thirty minutes later it only increased to 23.5, 60 minutes later it only increased to 28.8; therefore, he has adrenal insufficiency. PROCEDURE: As mentioned before, his pacemaker was interrogated and reprogrammed. It is a [employer]tronic device, Ene XT DR MRI [id number] with serial #[id number]. A number of things done 1. It showed there is atrial lead malfunction problem. Its position cannot be verified, it has a high threshold. This will need to be checked or may need to be replaced. 2. A number of pacing schemes were tried. The AAAI mode does not seem to work. I actually followed the arterial pulse with AAAI mode. At AAAI, even though it is registering A pacing, he is only demonstrating pulse at every other pacing spike, suggesting high degree AV block or atrial lead malfunction. 3. The DDDR mode was the best. H ad increased from 70 to 80 beats per minute for consistent capture and also provide better blood pressure support. It has been a pleasure taking care of Mr. Garland. 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 Thus, this is very complex case. We will increase his hydrocortisone support to q.6 hours. Dobutamine, we will leave it at 2.5, because I do not want to cause more arrhythmias. If it needs to be, it can be increased to 5 mcg/kg/minute. Revascularization of RCA will allow more aggressive push of endocrine medications and eventually a left ventricular lead will also be needed. Please see the following for my recommendations. RECOMMENDATIONS: 1. Transfer the patient to [facility]. He has been accepted by Dr. Jair España. 2. Please give a normal saline 500 mL bolus. 3. If patient continues to drop his blood pressure, will need to transfer the patient to an ICU. At that point, I will place a central line and add support with either norepinephrine or vasopressin because he is likely having an adrenal insufficiency and myxedema crisis and there is a limit of what we can do with dobutamine. 4. We will stop Entresto. At this point, Entresto is causing more harm than good. If you have any questions, please give me a call. Job ID: [id number] MTDD
[2019-10-12] MEDS: Allopurinol 300 MG TAB PO SCH (14:15)
[2019-10-12 15:05] VITALS: BP 104/71; TEMP 98.7
--- NOTE | 2019-10-12 21:48 | DIS ---
DATE OF ADMISSION: 10/11/2019 DATE OF DISCHARGE: 10/12/2019 DISCHARGE DIAGNOSES: As of the followin. Hypotension. 2. Atrial fibrillation. 3. Adrenal insufficiency. 4. Hypothyroidism. 5. Chronic systolic heart failure. HOSPITAL COURSE: The patient is an 84-year-old male, who initially presented to the hospital on 10/09 after having some lightheadedness and couple falls while playing golf, trying to pick a ball from the ground. The patient at this time was seen by Cardiology and also by EP. He had his pacemaker interrogated. He was found to have an elevated TSH. There was a concern for possible edema given his hyponatremia. At this time, patient did have a cosyntropin stim test with minimal elevation at 30, 60 and 90 minutes. At this time, heart failure physician who was consulted on the case wanted the patient to be transferred to [facility] for further evaluation to be seen by Endocrinology. At this time, patient was transferred to [facility]. HOME DISCHARGE MEDICATIONS: Will be as of the followin. He is on dobutamine 500 mg. 2. Florinef 0.1 daily. 3. Solu-Cortef 50 mg twice daily. 4. Vascepa 2 g b.i.d. 5. Synthroid 50 mcg daily. 6. Melatonin 3 mg p.o. daily. 7. Potassium 20 mEq daily. 8. Prilosec 20 mg daily. 9. Allopurinol 150 mg every 2 days. 10. Eliquis 5 b.i.d. 11. Amiodarone 1 tab daily. 12. Aspirin 81 mg daily. 13. Atorvastatin 80 mg daily. PHYSICAL EXAMINATION: VITAL SIGNS: Temperature 98.7, 91, 18, 95% on room air, 104/71. GENERAL: The patient is awake, alert, and oriented x3. Does not appear in distress. CV: S1, S2 present. No murmurs, rubs, or gallops. ABDOMEN: Soft and nontender. Bowel sounds are present x2. DISPOSITION: The patient again will be transferred to [facility]. Job ID: [id number]
[2019-10-13] MEDS ORDERED: Potassium Chloride 20 MEQ TAB PO SCH (09:00)
== END 2019-10-12 16:20 | disposition short-term general hospital (02) | DRG 644 ==
LOC: ERS 10:05 → INTOOBSV 12:28 → 2NO 12:28 → OBSVTOIN 10-11 14:04
PROVIDERS: ADMIT Internal Medicine; ATTEND Internal Medicine
PROC: 4B02XSZ Measurement of Cardiac Pacemaker, External Approach (ICD-10-PCS; principal; 2019-10-12)
DX: E03.9 Hypothyroidism, unspecified (principal); I42.9 Cardiomyopathy, unspecified; I48.19 Other persistent atrial fibrillation; I50.42 Chronic combined systolic (congestive) and diastolic (congestive) heart failure; E27.40 Unspecified adrenocortical insufficiency; E87.1 Hypo-osmolality and hyponatremia; I95.9 Hypotension, unspecified; K21.9 Gastro-esophageal reflux disease without esophagitis; E78.5 Hyperlipidemia, unspecified; M19.90 Unspecified osteoarthritis, unspecified site; I25.10 Atherosclerotic heart disease of native coronary artery without angina pectoris; I34.0 Nonrheumatic mitral (valve) insufficiency; I49.5 Sick sinus syndrome; I44.0 Atrioventricular block, first degree; E78.00 Pure hypercholesterolemia, unspecified; I11.0 Hypertensive heart disease with heart failure; Z95.0 Presence of cardiac pacemaker; Z79.899 Other long term (current) drug therapy; Z79.82 Long term (current) use of aspirin; Z79.01 Long term (current) use of anticoagulants; Z85.46 Personal history of malignant neoplasm of prostate
CPT/HCPCS: 36415; 71045; 80048; 80053; 80400; 82533; 83735; 83880; 84436; 84439; 84443; 84481; 84484; 85025; 85610; 85730; 93005; 93306; G0378; J0834; J1250; J1720; J7030

== ENCOUNTER 2021-04-09 11:25 | Emergency (ER) | payer MEDICARE, BC ==
[2021-04-09 13:07] LABS: #Eosinphils 0.1 thou/uL (0.0-0.7); #Lymphocytes 1.4 thou/uL (1.20-3.40); #Monocytes 0.5 thou/uL (0.11-0.59); #Neutrophils 3.4 thou/uL (1.40-6.50); %Basophils 0.3 % (0.0-1.0); %Eosinophils 1.1 % (0.0-10.0); %Lymphocytes 26.6 % (21.0-51.0); %Monocytes 8.7 % (0.0-10.0); %Neutrophils 63.2 % (42.0-75.0); Hemoglobin 14.1 g/dL (14.0-18.0); Mean Corpuscular HGB CONC 32.6 g/dL (32.0-36.0); Mean Corpuscular Hemoglobin 34.8 pg (27.0-31.0); Mean Platelet Volume 7.2 fL (7.4-10.4); Platelet Count 145 thou/uL (130-400); RBC Distribution Width 11.4 % (11.5-14.5); Red Blood Cell (RBC) Count 4.05 mill/uL (4.70-6.10); White Blood Cell (WBC) Count 5.4 thou/uL (4.8-10.8)
[2021-04-09 13:25] LABS: ALT (SGPT) 20 U/L (8-55); AST (SGOT) 15 U/L (5-34); Albumin 3.8 g/dL (3.4-4.8); Alkaline Phosphatase 65 U/L (40-110); Anion Gap 10 mmol/L (10-20); BUN (Urea Nitrogen) 22 mg/dL (8.4-25.7); Bilirubin, Total 0.8 mg/dL (0.2-1.2); Calc. Creatinine Clearance 0 mL/min (70-130); Calcium 8.6 mg/dL (7.8-10.44); Carbon Dioxide 27 mmol/L (23-31); Chloride 106 mmol/L (98-107); Globulin 2.4 g/dL (2.4-3.5); Glucose 108 mg/dL (83-110); Potassium 4.3 mmol/L (3.5-5.1); Protein, Total 6.2 g/dL (5.8-8.1); Sodium 139 mmol/L (136-145)
[2021-04-09 13:28] LABS: MDiff Complete? YES; Macrocytosis SLIGHT = 6-15 cells (100X) (0-5/hpf); Platelet Morphology Comment Appears Adequate
[2021-04-09 13:35] LABS: Bilirubin Negative (Negative); Blood, Urine Negative (Negative); Clarity Clear (Clear); Glucose, Urine (Dipstick) Normal (Negative); Ketone, Urine Negative (Negative); Leukocyte Negative Leu/uL (Negative); Nitrite Negative (Negative); Protein, Urine (Dipstick) Negative (Neg-Trace); Specific Gravity, Urine 1.012 (1.002-1.036); Urobilinogen Normal mg/dL (Less than 2); pH, Urine 5.5 (5.0-9.0)
== END 2021-04-09 17:49 | disposition home or self-care (01) ==
LOC: ERS 11:25
DX: I48.91 Unspecified atrial fibrillation (principal); R41.82 Altered mental status, unspecified; K21.9 Gastro-esophageal reflux disease without esophagitis; E78.5 Hyperlipidemia, unspecified; E78.00 Pure hypercholesterolemia, unspecified; I10 Essential (primary) hypertension; M19.90 Unspecified osteoarthritis, unspecified site
CPT/HCPCS: 36415; 70450; 71045; 80053; 81003; 83880; 84484; 85025; 93005

== ENCOUNTER 2021-11-08 01:30 | Observation (INO) | payer MEDICARE, BC ==
[2021-11-08] MEDS ORDERED: Ondansetron PF 4 MG/2 ML Vial IVP PRN (04:03)
[2021-11-08] MEDS ORDERED: Acetaminophen 325 MG TAB PO PRN (04:03)
[2021-11-08 04:49] VITALS: BMI 27.2
[2021-11-08 05:12] LABS: Hemoglobin A1c 5.8 % (4.0-6.0)
[2021-11-08 05:26] LABS: ALT (SGPT) 14 U/L (8-55); AST (SGOT) 11 U/L (5-34); Albumin 4.1 g/dL (3.4-4.8); Alkaline Phosphatase 65 U/L (40-110); Anion Gap 11 mmol/L (10-20); BUN (Urea Nitrogen) 20 mg/dL (8.4-25.7); Calc. Creatinine Clearance 93 mL/min (70-130); Calcium 9.2 mg/dL (7.8-10.44); Carbon Dioxide 25 mmol/L (23-31); Cardiac Risk 2.2 (Less than 4.5); Chloride 108 mmol/L (98-107); Cholesterol 107 mg/dl (< 200 Desired); Estimated GFR 89; Globulin 2.6 g/dL (2.4-3.5); Glucose 109 mg/dL (83-110); HDL Cholesterol 49 mg/dL (>60 Neg Risk); LDL Cholesterol, Calculated 50 mg/dL; Potassium 3.9 mmol/L (3.5-5.1); Protein, Total 6.7 g/dL (5.8-8.1); Sodium 140 mmol/L (136-145); Triglycerides 40 mg/dL (Less than 150)
[2021-11-08 05:29] LABS: #Eosinphils 0.1 thou/uL (0.0-0.7); #Lymphocytes 2.2 thou/uL (1.20-3.40); #Monocytes 0.6 thou/uL (0.11-0.59); %Basophils 0.3 % (0.0-1.0); %Eosinophils 0.7 % (0.0-10.0); %Lymphocytes 32.4 % (21.0-51.0); %Monocytes 8.8 % (0.0-10.0); %Neutrophils 57.8 % (42.0-75.0); Burr Cells SLIGHT = 2-5 cells (100X) (0-1/hpf); Hemoglobin 14.5 g/dL (14.0-18.0); MDiff Complete? YES; Macrocytosis MODERATE=16-30 cells (100X) (0-5/hpf); Mean Corpuscular HGB CONC 32.3 g/dL (32.0-36.0); Mean Corpuscular Hemoglobin 35.1 pg (27.0-31.0); Mean Platelet Volume 7.3 fL (7.4-10.4); Ovalocytes SLIGHT = 2-5 cells (100X) (0-1/hpf); Platelet Count 160 thou/uL (130-400); Platelet Morphology Comment Appears Adequate; RBC Distribution Width 11.5 % (11.5-14.5); Red Blood Cell (RBC) Count 4.13 mill/uL (4.70-6.10); White Blood Cell (WBC) Count 6.9 thou/uL (4.8-10.8)
[2021-11-08] MEDS ORDERED: Melatonin 3 MG TAB PO PRN (05:44)
[2021-11-08] MEDS ORDERED: Levothyroxine Sodium 50 MCG TAB PO SCH (06:00)
[2021-11-08] MEDS: Apixaban 5 MG TAB PO SCH ×2 (08:13→20:32)
[2021-11-08] MEDS: Carvedilol 6.25 MG TAB PO SCH ×2 (08:13→20:33)
[2021-11-08] MEDS: Liothyronine Sodium 5 MCG TAB PO SCH ×2 (08:13→20:32)
[2021-11-08] MEDS ORDERED: Allopurinol 300 MG TAB PO SCH (09:00)
[2021-11-08] MEDS ORDERED: Apixaban 5 MG TAB PO SCH (09:00)
[2021-11-08] MEDS ORDERED: predniSONE 5 MG TAB PO SCH (09:00)
[2021-11-08] MEDS ORDERED: Amiodarone 200 MG TAB PO SCH (09:00)
[2021-11-08] MEDS ORDERED: Iopamidol-370 76% 500 ML 1 ML ONE (15:50)
[2021-11-08] MEDS ORDERED: Zolpidem Tartrate 5 MG TAB PO SCH (21:00)
[2021-11-08] MEDS ORDERED: rOPINIRole HCl 1 MG TAB PO SCH (21:00)
[2021-11-08] MEDS ORDERED: Atorvastatin Calcium 40 MG TAB PO SCH ×2 (21:00)
[2021-11-09] MEDS ORDERED: Levothyroxine Sodium 50 MCG TAB PO SCH (06:00)
[2021-11-09] MEDS: Carvedilol 6.25 MG TAB PO SCH (08:02)
[2021-11-09] MEDS: Liothyronine Sodium 5 MCG TAB PO SCH (08:02)
[2021-11-09] MEDS: Apixaban 5 MG TAB PO SCH (08:03)
[2021-11-09] MEDS ORDERED: Aspirin 81 mg Enteric Coated Tablet PO SCH (09:00)
[2021-11-09 11:48] VITALS: BP 108/65; TEMP 98.7
== END 2021-11-09 12:09 | disposition home or self-care (01) ==
LOC: NEURO 01:30
PROVIDERS: ADMIT Internal Medicine; ATTEND Internal Medicine
DX: R41.0 Disorientation, unspecified (principal); I25.10 Atherosclerotic heart disease of native coronary artery without angina pectoris; I48.0 Paroxysmal atrial fibrillation; E03.9 Hypothyroidism, unspecified; I11.0 Hypertensive heart disease with heart failure; I50.40 Unspecified combined systolic (congestive) and diastolic (congestive) heart failure; K21.9 Gastro-esophageal reflux disease without esophagitis; M10.9 Gout, unspecified; G25.81 Restless legs syndrome; I08.8 Other rheumatic multiple valve diseases; I42.9 Cardiomyopathy, unspecified; E78.5 Hyperlipidemia, unspecified; Z66 Do not resuscitate; Z85.46 Personal history of malignant neoplasm of prostate; Z79.01 Long term (current) use of anticoagulants; Z79.52 Long term (current) use of systemic steroids; Z79.82 Long term (current) use of aspirin; Z79.890 Hormone replacement therapy; Z79.899 Other long term (current) drug therapy; Z95.0 Presence of cardiac pacemaker; Z95.5 Presence of coronary angioplasty implant and graft; Z20.822 Contact with and (suspected) exposure to COVID-19
CPT/HCPCS: 70450; 70496; 70498; 71045; 80053 ×2; 80061; 82962; 83036; 83735; 84484; 85025 ×2; 93005; 93306; 93880; 97116; 97535; U0002; 36415; 36416; G0378; J7512; Q9967

== ENCOUNTER 2022-05-02 01:57 | Inpatient (IN) | payer MEDICARE, BC ==
[2022-05-02] MEDS ORDERED: Morphine 4 MG/ML VIAL SLOW IVP PRN (03:02)
[2022-05-02] MEDS ORDERED: Ondansetron PF 4 MG/2 ML Vial IVP PRN (03:15)
[2022-05-02] MEDS ORDERED: Ondansetron ODT 4 MG TAB SL PRN (03:15)
[2022-05-02 03:35] VITALS: BMI 26.1
[2022-05-02] MEDS: Lactated Ringer's 1,000 ML IV SCH ×2 (04:10→19:34)
[2022-05-02] MEDS ORDERED: Fleet Enema 133 ML BOT PR SCH (10:00)
[2022-05-02] MEDS ORDERED: Ketamine 50 MG/ML (10ML VIAL) ONE ×2 (10:13→22:27)
[2022-05-02] MEDS ORDERED: Succinylcholine Chloride 100 MG/5 ML SYRINGE FS ONE (10:20)
[2022-05-02] MEDS ORDERED: PHENYLEPHRINE-NS 100 MCG/ML 10 ML SYRINGE ONE ×2 (10:20→23:45)
[2022-05-02] MEDS ORDERED: Ondansetron PF 4 MG/2 ML Vial ONE ×2 (10:20→23:45)
[2022-05-02] MEDS ORDERED: PROPOFOL 200 MG/20 ML VIAL ONE ×2 (10:20→23:45)
[2022-05-02] MEDS ORDERED: GASTROGRAFIN 30 ML BOT ONE (11:11)
[2022-05-02] MEDS: Melatonin 3 MG TAB PO PRN (21:34)
[2022-05-02] MEDS ORDERED: Fentanyl 250 MCG/5 ML VIAL ONE (22:27)
[2022-05-02] MEDS ORDERED: SUGAMMADEX SODIUM 200 MG/2 ML VIAL ONE (22:28)
[2022-05-02] MEDS ORDERED: Albumin 5% 500 ML ONE ×2 (22:28→22:29)
[2022-05-02] MEDS ORDERED: Phenylephrine 10 MG/ML VIAL ONE (22:28)
[2022-05-02] MEDS ORDERED: cefOXitin 2 GM in Sodium Chloride 0.9% 100 ML IVPB SCH (22:45)
[2022-05-02] MEDS ORDERED: NEOSTIGMINE 3 MG/3 ML SYR 3 MG/3 ML SYRINGE ONE (23:45)
[2022-05-02] MEDS ORDERED: Glycopyrrolate 0.2 MG/ML 5 ML SYRINGE ONE (23:45)
[2022-05-02] MEDS ORDERED: Rocuronium Bromide 10 MG/ML (10ML VIAL) ONE (23:45)
[2022-05-02] MEDS ORDERED: Dexamethasone 20 MG/5 ML VIAL ONE (23:45)
[2022-05-03] MEDS ORDERED: cefOXitin 2 GM VIAL ONE (00:02)
[2022-05-03] MEDS ORDERED: EPINEPHrine 1 MG/ML AMP ONE (00:06)
[2022-05-03] MEDS ORDERED: Bupivacaine 0.25% HCL 30 ML VIAL ONE (00:06)
[2022-05-03] MEDS ORDERED: HYDROmorphone 2 MG/ML VIAL ONE (01:21)
[2022-05-03] MEDS ORDERED: Promethazine HCl 25 MG/ML VIAL IM PRN ×2 (02:26)
[2022-05-03] MEDS ORDERED: Promethazine HCl 25 MG/ML VIAL IVPB PRN (02:26)
[2022-05-03] MEDS ORDERED: Ondansetron HCl/PF 4 MG/2 ML Vial IVP PRN (02:26)
[2022-05-03] MEDS ORDERED: Naloxone HCl 0.4 mg/ml Vial IV PRN (02:26)
[2022-05-03] MEDS ORDERED: Ketorolac Tromethamine 30 MG/ML VIAL IVP PRN (02:29)
[2022-05-03] MEDS ORDERED: Communication Order-Pharmacy FS SCH (02:30)
[2022-05-03 05:34] LABS: Anion Gap 16 mmol/L (10-20); BUN (Urea Nitrogen) 18 mg/dL (8.4-25.7); Calc. Creatinine Clearance 83 mL/min (70-130); Calcium 8.7 mg/dL (7.8-10.44); Carbon Dioxide 22 mmol/L (23-31); Chloride 104 mmol/L (98-107); Estimated GFR 87; Glucose 131 mg/dL (83-110); Potassium 4.1 mmol/L (3.5-5.1); Sodium 138 mmol/L (136-145)
[2022-05-03 06:38] LABS: #Lymphocytes 0.6 thou/uL (1.20-3.40); #Monocytes 0.2 thou/uL (0.11-0.59); #Neutrophils 7.1 thou/uL (1.40-6.50); %Lymphocytes 7.2 % (21.0-51.0); %Monocytes 2.6 % (0.0-10.0); %Neutrophils 90.2 % (42.0-75.0); Hemoglobin 13.6 g/dL (14.0-18.0); Mean Corpuscular HGB CONC 34.4 g/dL (32.0-36.0); Mean Corpuscular Hemoglobin 37.1 pg (27.0-31.0); Mean Platelet Volume 7.4 fL (7.4-10.4); Platelet Count 135 10x3/uL (130-400); RBC Distribution Width 11.1 % (11.5-14.5); Red Blood Cell (RBC) Count 3.66 mill/uL (4.70-6.10); White Blood Cell (WBC) Count 7.9 10x3/uL (4.8-10.8)
[2022-05-03 07:59] LABS: ALT (SGPT) 12 U/L (8-55); AST (SGOT) 14 U/L (5-34); Albumin 3.9 g/dL (3.4-4.8); Alkaline Phosphatase 63 U/L (40-110); Anion Gap 13 mmol/L (10-20); BUN (Urea Nitrogen) 17 mg/dL (8.4-25.7); Bilirubin, Total 1.3 mg/dL (0.2-1.2); Calc. Creatinine Clearance 86 mL/min (70-130); Calcium 8.8 mg/dL (7.8-10.44); Carbon Dioxide 26 mmol/L (23-31); Chloride 104 mmol/L (98-107); Estimated GFR 88; Globulin 2.4 g/dL (2.4-3.5); Glucose 138 mg/dL (83-110); Potassium 4.4 mmol/L (3.5-5.1); Protein, Total 6.3 g/dL (5.8-8.1); Sodium 139 mmol/L (136-145)
[2022-05-03 08:57] LABS: RBC Morphology Normal
[2022-05-03] MEDS: cefOXitin Sodium 1 GM in Sodium Chloride 0.9% 100 ML IVPB SCH ×2 (13:16→20:21)
[2022-05-03] MEDS: Carvedilol 6.25 MG TAB PO SCH (20:19)
[2022-05-03] MEDS: Melatonin 3 MG TAB PO PRN (20:21)
[2022-05-03] MEDS: diphenhydrAMINE 25 MG CAP PO PRN (22:34)
[2022-05-04 05:00] LABS: #Lymphocytes 1.4 thou/uL (1.20-3.40); #Monocytes 0.8 thou/uL (0.11-0.59); %Basophils 0.1 % (0.0-1.0); %Eosinophils 0.3 % (0.0-10.0); %Lymphocytes 14.8 % (21.0-51.0); %Monocytes 8.6 % (0.0-10.0); %Neutrophils 76.2 % (42.0-75.0); Hemoglobin 12.8 g/dL (14.0-18.0); Mean Corpuscular HGB CONC 32.9 g/dL (32.0-36.0); Mean Corpuscular Hemoglobin 35.6 pg (27.0-31.0); Mean Platelet Volume 7.3 fL (7.4-10.4); Platelet Count 141 10x3/uL (130-400); RBC Distribution Width 11.2 % (11.5-14.5); Red Blood Cell (RBC) Count 3.59 mill/uL (4.70-6.10); White Blood Cell (WBC) Count 9.2 10x3/uL (4.8-10.8)
[2022-05-04 05:19] LABS: Anion Gap 10 mmol/L (10-20); BUN (Urea Nitrogen) 21 mg/dL (8.4-25.7); Calc. Creatinine Clearance 84 mL/min (70-130); Calcium 8.8 mg/dL (7.8-10.44); Carbon Dioxide 28 mmol/L (23-31); Chloride 103 mmol/L (98-107); Estimated GFR 88; Glucose 106 mg/dL (83-110); Potassium 4.2 mmol/L (3.5-5.1); Sodium 137 mmol/L (136-145)
[2022-05-04] MEDS: cefOXitin Sodium 1 GM in Sodium Chloride 0.9% 100 ML IVPB SCH (05:39)
[2022-05-04] MEDS: Carvedilol 6.25 MG TAB PO SCH ×2 (09:12→20:52)
[2022-05-04] MEDS ORDERED: Cepastat Lozenges 1 LOZ PO PRN (12:13)
[2022-05-04] MEDS ORDERED: Chloraseptic Spray 180 ml Bottle PO PRN (12:13)
[2022-05-04] MEDS: Melatonin 3 MG TAB PO PRN (20:55)
[2022-05-04] MEDS: FENTANYL 500 MCG/10 ML VIAL 2,000 MCG in Sodium Chloride 0.9% 60 ML IV PRN (21:19)
[2022-05-05] MEDS: diphenhydrAMINE 50 MG/ML VIAL IVP PRN (00:48)
[2022-05-05 05:04] LABS: #Lymphocytes 0.9 thou/uL (1.20-3.40); #Monocytes 0.8 thou/uL (0.11-0.59); %Basophils 0.2 % (0.0-1.0); %Eosinophils 0.3 % (0.0-10.0); %Lymphocytes 8.5 % (21.0-51.0); %Monocytes 7.2 % (0.0-10.0); %Neutrophils 83.7 % (42.0-75.0); Mean Corpuscular HGB CONC 32.9 g/dL (32.0-36.0); Mean Corpuscular Hemoglobin 35.7 pg (27.0-31.0); Mean Platelet Volume 7.4 fL (7.4-10.4); Platelet Count 167 10x3/uL (130-400); RBC Distribution Width 11.2 % (11.5-14.5); Red Blood Cell (RBC) Count 3.92 mill/uL (4.70-6.10); White Blood Cell (WBC) Count 10.7 10x3/uL (4.8-10.8)
[2022-05-05 05:13] LABS: Anion Gap 17 mmol/L (10-20); BUN (Urea Nitrogen) 25 mg/dL (8.4-25.7); Calc. Creatinine Clearance 88 mL/min (70-130); Calcium 9.4 mg/dL (7.8-10.44); Carbon Dioxide 26 mmol/L (23-31); Chloride 101 mmol/L (98-107); Estimated GFR 89; Glucose 111 mg/dL (83-110); Potassium 4.2 mmol/L (3.5-5.1); Sodium 140 mmol/L (136-145)
[2022-05-05] MEDS: Carvedilol 6.25 MG TAB PO SCH ×2 (08:56→21:48)
[2022-05-05 12:08] LABS: ALT (SGPT) 8 U/L (8-55); AST (SGOT) 13 U/L (5-34); Albumin 3.6 g/dL (3.4-4.8); Alkaline Phosphatase 61 U/L (40-110); Bilirubin, Direct 0.5 mg/dL (0.1-0.3); Protein, Total 6.3 g/dL (5.8-8.1)
[2022-05-05] MEDS: Melatonin 3 MG TAB PO PRN (21:49)
[2022-05-06 04:44] LABS: #Eosinphils 0.1 thou/uL (0.0-0.7); #Lymphocytes 1.2 thou/uL (1.20-3.40); #Neutrophils 7.7 thou/uL (1.40-6.50); %Basophils 0.1 % (0.0-1.0); %Eosinophils 1.4 % (0.0-10.0); %Lymphocytes 11.8 % (21.0-51.0); %Monocytes 10.3 % (0.0-10.0); %Neutrophils 76.4 % (42.0-75.0); Hemoglobin 13.1 g/dL (14.0-18.0); Mean Corpuscular HGB CONC 32.5 g/dL (32.0-36.0); Mean Corpuscular Hemoglobin 35.5 pg (27.0-31.0); Mean Platelet Volume 7.5 fL (7.4-10.4); Platelet Count 158 10x3/uL (130-400); RBC Distribution Width 11.1 % (11.5-14.5); Red Blood Cell (RBC) Count 3.68 mill/uL (4.70-6.10); White Blood Cell (WBC) Count 10.1 10x3/uL (4.8-10.8)
[2022-05-06 05:04] LABS: Anion Gap 16 mmol/L (10-20); BUN (Urea Nitrogen) 29 mg/dL (8.4-25.7); Calc. Creatinine Clearance 89 mL/min (70-130); Calcium 9.1 mg/dL (7.8-10.44); Carbon Dioxide 26 mmol/L (23-31); Chloride 104 mmol/L (98-107); Estimated GFR 89; Glucose 99 mg/dL (83-110); Potassium 3.9 mmol/L (3.5-5.1); Sodium 142 mmol/L (136-145)
[2022-05-06] MEDS: FENTANYL 500 MCG/10 ML VIAL 2,000 MCG in Sodium Chloride 0.9% 60 ML IV PRN (08:53)
[2022-05-06] MEDS: Carvedilol 6.25 MG TAB PO SCH ×2 (10:33→22:16)
[2022-05-06] MEDS ORDERED: Zolpidem Tartrate 5 MG TAB PO SCH (21:45)
[2022-05-06] MEDS: Docusate 100 MG CAP PO SCH (22:16)
[2022-05-06] MEDS: diphenhydrAMINE 25 MG CAP PO PRN (22:17)
[2022-05-06] MEDS: Melatonin 3 MG TAB PO PRN (22:17)
[2022-05-07 05:00] LABS: #Eosinphils 0.2 thou/uL (0.0-0.7); #Lymphocytes 0.8 thou/uL (1.20-3.40); #Monocytes 0.9 thou/uL (0.11-0.59); #Neutrophils 6.7 thou/uL (1.40-6.50); %Basophils 0.3 % (0.0-1.0); %Eosinophils 1.8 % (0.0-10.0); %Lymphocytes 9.1 % (21.0-51.0); %Monocytes 10.6 % (0.0-10.0); %Neutrophils 78.2 % (42.0-75.0); Hemoglobin 12.3 g/dL (14.0-18.0); Mean Corpuscular HGB CONC 33.1 g/dL (32.0-36.0); Mean Corpuscular Hemoglobin 35.6 pg (27.0-31.0); Mean Platelet Volume 7.2 fL (7.4-10.4); Platelet Count 168 10x3/uL (130-400); RBC Distribution Width 10.9 % (11.5-14.5); Red Blood Cell (RBC) Count 3.46 mill/uL (4.70-6.10); White Blood Cell (WBC) Count 8.6 10x3/uL (4.8-10.8)
[2022-05-07 05:25] LABS: Anion Gap 14 mmol/L (10-20); BUN (Urea Nitrogen) 30 mg/dL (8.4-25.7); Calc. Creatinine Clearance 97 mL/min (70-130); Calcium 8.8 mg/dL (7.8-10.44); Carbon Dioxide 28 mmol/L (23-31); Chloride 105 mmol/L (98-107); Estimated GFR 92; Glucose 106 mg/dL (83-110); Potassium 3.6 mmol/L (3.5-5.1); Sodium 143 mmol/L (136-145)
[2022-05-07] MEDS: Liothyronine Sodium 5 MCG TAB PO SCH (07:02)
[2022-05-07] MEDS: Carvedilol 6.25 MG TAB PO SCH ×2 (10:23→23:12)
[2022-05-07] MEDS: Docusate 100 MG CAP PO SCH ×2 (10:24→23:12)
[2022-05-07] MEDS: Ondansetron PF 4 MG/2 ML Vial IVP PRN (16:38)
[2022-05-07] MEDS ORDERED: Ondansetron PF 4 MG/2 ML Vial IVP SCH (19:15)
[2022-05-07] MEDS: diphenhydrAMINE 50 MG/ML VIAL IVP PRN (21:24)
[2022-05-08] MEDS: diphenhydrAMINE 50 MG/ML VIAL IVP PRN (02:42)
[2022-05-08] MEDS: Liothyronine Sodium 5 MCG TAB PO SCH (05:55)
[2022-05-08] MEDS: Ondansetron PF 4 MG/2 ML Vial IVP PRN ×2 (05:56→22:38)
[2022-05-08 08:19] LABS: #Eosinphils 0.2 thou/uL (0.0-0.7); #Lymphocytes 1.1 thou/uL (1.20-3.40); #Monocytes 0.8 thou/uL (0.11-0.59); %Basophils 0.6 % (0.0-1.0); %Eosinophils 2.6 % (0.0-10.0); %Lymphocytes 17.7 % (21.0-51.0); %Monocytes 12.7 % (0.0-10.0); %Neutrophils 66.4 % (42.0-75.0); Hemoglobin 11.4 g/dL (14.0-18.0); Mean Corpuscular HGB CONC 33.1 g/dL (32.0-36.0); Mean Corpuscular Hemoglobin 35.8 pg (27.0-31.0); Mean Platelet Volume 7.2 fL (7.4-10.4); Platelet Count 168 10x3/uL (130-400); RBC Distribution Width 11.1 % (11.5-14.5); Red Blood Cell (RBC) Count 3.18 mill/uL (4.70-6.10)
[2022-05-08 08:48] LABS: Anion Gap 10 mmol/L (10-20); BUN (Urea Nitrogen) 24 mg/dL (8.4-25.7); Calc. Creatinine Clearance 95 mL/min (70-130); Calcium 8.3 mg/dL (7.8-10.44); Carbon Dioxide 30 mmol/L (23-31); Chloride 107 mmol/L (98-107); Estimated GFR 91; Glucose 92 mg/dL (83-110); Magnesium 1.9 mg/dL (1.6-2.6); Phosphorus 2.5 mg/dL (2.3-4.7); Potassium 3.5 mmol/L (3.5-5.1); Sodium 143 mmol/L (136-145)
[2022-05-08] MEDS: Carvedilol 6.25 MG TAB PO SCH ×2 (09:04→22:02)
[2022-05-08] MEDS: Docusate 100 MG CAP PO SCH ×2 (09:04→22:02)
[2022-05-08] MEDS: FENTANYL 500 MCG/10 ML VIAL 2,000 MCG in Sodium Chloride 0.9% 60 ML IV PRN (18:20)
[2022-05-08] MEDS: Melatonin 3 MG TAB PO PRN (22:04)
[2022-05-09] MEDS: Liothyronine Sodium 5 MCG TAB PO SCH (05:59)
[2022-05-09] MEDS: Docusate 100 MG CAP PO SCH ×2 (08:59→21:18)
[2022-05-09] MEDS: Carvedilol 6.25 MG TAB PO SCH ×2 (08:59→22:32)
[2022-05-09] MEDS ORDERED: DARIDOREXANT HCL PO PRN (18:15)
[2022-05-09] MEDS ORDERED: Acetaminophen 500 MG TAB PO PRN (18:15)
[2022-05-09] MEDS ORDERED: Acetaminophen 500 MG TAB PO SCH (18:15)
[2022-05-09] MEDS ORDERED: Zolpidem Tartrate 5 MG TAB PO PRN (18:24)
[2022-05-09] MEDS: Allopurinol 300 MG TAB PO SCH (19:31)
[2022-05-09] MEDS: rOPINIRole HCl 0.5 MG TAB PO SCH (21:18)
[2022-05-09] MEDS: Apixaban 5 MG TAB PO SCH (21:18)
[2022-05-09] MEDS: Melatonin 3 MG TAB PO PRN (22:31)
[2022-05-10] MEDS: Liothyronine Sodium 5 MCG TAB PO SCH (05:57)
[2022-05-10] MEDS: Ascorbic Acid 500 mg Chewable Tablet PO SCH (09:25)
[2022-05-10] MEDS: Carvedilol 6.25 MG TAB PO SCH ×2 (09:27→22:30)
[2022-05-10] MEDS: Aspirin 81 mg Enteric Coated Tablet PO SCH (09:27)
[2022-05-10] MEDS: Docusate 100 MG CAP PO SCH ×2 (09:27→22:30)
[2022-05-10] MEDS: Zinc Sulfate 220 MG CAP PO SCH (09:27)
[2022-05-10] MEDS: rOPINIRole HCl 0.5 MG TAB PO SCH ×3 (09:27→22:29)
[2022-05-10] MEDS: Apixaban 5 MG TAB PO SCH ×2 (09:27→22:30)
[2022-05-10] MEDS ORDERED: Ondansetron PF 4 MG/2 ML Vial IVP PRN (10:37)
[2022-05-10] MEDS: traMADol HCl 50 MG TAB PO PRN (18:16)
[2022-05-10] MEDS: Melatonin 3 MG TAB PO PRN (22:30)
[2022-05-11] MEDS: Liothyronine Sodium 5 MCG TAB PO SCH (05:43)
[2022-05-11] MEDS: rOPINIRole HCl 0.5 MG TAB PO SCH ×3 (08:23→20:47)
[2022-05-11] MEDS: Ascorbic Acid 500 mg Chewable Tablet PO SCH (08:23)
[2022-05-11] MEDS: Zinc Sulfate 220 MG CAP PO SCH (08:23)
[2022-05-11] MEDS: Docusate 100 MG CAP PO SCH ×2 (08:23→20:45)
[2022-05-11] MEDS: Apixaban 5 MG TAB PO SCH ×2 (08:23→20:45)
[2022-05-11] MEDS: Carvedilol 6.25 MG TAB PO SCH ×2 (08:24→20:45)
[2022-05-11] MEDS: Aspirin 81 mg Enteric Coated Tablet PO SCH (08:24)
[2022-05-11] MEDS: Allopurinol 300 MG TAB PO SCH (17:50)
[2022-05-11] MEDS: Melatonin 3 MG TAB PO PRN (20:47)
[2022-05-11] MEDS: traMADol HCl 50 MG TAB PO PRN (22:15)
[2022-05-12] MEDS ORDERED: hydrOXYzine Pamoate 25 mg Capsule PO SCH (00:30)
[2022-05-12 04:44] VITALS: TEMP 98
[2022-05-12] MEDS: Liothyronine Sodium 5 MCG TAB PO SCH (06:19)
[2022-05-12] MEDS: Aspirin 81 mg Enteric Coated Tablet PO SCH (08:20)
[2022-05-12] MEDS: rOPINIRole HCl 0.5 MG TAB PO SCH (08:20)
[2022-05-12] MEDS: Ascorbic Acid 500 mg Chewable Tablet PO SCH (08:20)
[2022-05-12] MEDS: Zinc Sulfate 220 MG CAP PO SCH (08:20)
[2022-05-12] MEDS: Carvedilol 6.25 MG TAB PO SCH (08:21)
[2022-05-12] MEDS: Docusate 100 MG CAP PO SCH (08:21)
[2022-05-12] MEDS: Apixaban 5 MG TAB PO SCH (08:21)
[2022-05-12 12:08] VITALS: BP 93/59
[2022-05-13] MEDS ORDERED: Polyethylene Glycol 3350 17 GM Packet PO SCH (09:00)
== END 2022-05-12 14:45 | disposition home health service (06) | DRG 330 ==
LOC: SURG A 02:41 → 2NO 16:29 → SURG A 05-08 18:23
PROVIDERS: ADMIT Internal Medicine; ATTEND Internal Medicine
PROC: 0DSN8ZZ Reposition Sigmoid Colon, Via Natural or Artificial Opening Endoscopic (ICD-10-PCS; 2022-05-02)
PROC: 0DBN0ZZ Excision of Sigmoid Colon, Open Approach (ICD-10-PCS; principal; 2022-05-03)
DX: K56.2 Volvulus (principal); I50.22 Chronic systolic (congestive) heart failure; Z20.822 Contact with and (suspected) exposure to COVID-19; K91.89 Other postprocedural complications and disorders of digestive system; Z66 Do not resuscitate; K56.7 Ileus, unspecified; Y83.8 Other surgical procedures as the cause of abnormal reaction of the patient, or of later complication, without mention of misadventure at the time of the procedure; I25.10 Atherosclerotic heart disease of native coronary artery without angina pectoris; I48.91 Unspecified atrial fibrillation; E78.5 Hyperlipidemia, unspecified; E03.9 Hypothyroidism, unspecified; M10.9 Gout, unspecified; I11.0 Hypertensive heart disease with heart failure; Z88.8 Allergy status to other drugs, medicaments and biological substances; Z95.5 Presence of coronary angioplasty implant and graft; Z79.899 Other long term (current) drug therapy; Z90.89 Acquired absence of other organs; Z95.0 Presence of cardiac pacemaker
CPT/HCPCS: 36415; 74018; 74019; 74176; 74177; 80048; 80053; 80076; 81003; 81015; 83605; 83690; 83735; 84100; 85025; 85610; 85730; 88307; 93005; 96374; 96375; A4649; C1776; J0171; J0694; J1100; J1170; J1200; J2270; J2370; J2405; J2704; J3010; J3490; J7120; P9045; Q9963; Q9967; S0020; U0002

== ENCOUNTER 2022-06-01 12:17 | Inpatient (IN) | payer MEDICARE, BC ==
[2022-06-01 13:38] VITALS: BMI 23.7
[2022-06-01] MEDS ORDERED: Morphine 4 MG/ML VIAL SLOW IVP PRN (13:41)
[2022-06-01] MEDS ORDERED: Ondansetron PF 4 MG/2 ML Vial IVP PRN (14:21)
[2022-06-01] MEDS ORDERED: Acetaminophen 325 MG TAB PO PRN (14:21)
[2022-06-01] MEDS ORDERED: Bisacodyl 5 MG TAB PO PRN (14:21)
[2022-06-01 15:39] LABS: ALT (SGPT) 14 U/L (8-55); AST (SGOT) 12 U/L (5-34); Albumin 3.8 g/dL (3.4-4.8); Alkaline Phosphatase 73 U/L (40-110); Anion Gap 13 mmol/L (10-20); BUN (Urea Nitrogen) 16 mg/dL (8.4-25.7); Bilirubin, Total 0.8 mg/dL (0.2-1.2); Calc. Creatinine Clearance 72 mL/min (70-130); Calcium 9.1 mg/dL (7.8-10.44); Carbon Dioxide 24 mmol/L (23-31); Chloride 105 mmol/L (98-107); Estimated GFR 86; Globulin 2.7 g/dL (2.4-3.5); Glucose 121 mg/dL (83-110); Potassium 3.9 mmol/L (3.5-5.1); Protein, Total 6.5 g/dL (5.8-8.1); Sodium 138 mmol/L (136-145)
[2022-06-01 15:40] LABS: #Basophils 0.1 thou/uL (0.0-0.2); #Eosinphils 0.1 thou/uL (0.0-0.7); #Lymphocytes 1.3 thou/uL (1.20-3.40); #Monocytes 0.4 thou/uL (0.11-0.59); #Neutrophils 3.5 thou/uL (1.40-6.50); %Eosinophils 1.1 % (0.0-10.0); %Lymphocytes 24.8 % (21.0-51.0); %Monocytes 6.9 % (0.0-10.0); %Neutrophils 66.2 % (42.0-75.0); Hemoglobin 13.2 g/dL (14.0-18.0); Mean Corpuscular Hemoglobin 35.4 pg (27.0-31.0); Mean Platelet Volume 6.8 fL (7.4-10.4); Platelet Count 154 10x3/uL (130-400); RBC Distribution Width 11.5 % (11.5-14.5); Red Blood Cell (RBC) Count 3.73 mill/uL (4.70-6.10); White Blood Cell (WBC) Count 5.3 10x3/uL (4.8-10.8)
[2022-06-01] MEDS: Sodium Chloride 0.9% 1,000 ML IV SCH (17:00)
[2022-06-01] MEDS: D5W-AA 4.25% with LYTES 1,000 ML IV SCH (17:00)
[2022-06-01] MEDS: rOPINIRole HCl 0.5 MG TAB PO SCH ×2 (17:17→23:02)
[2022-06-01] MEDS: Atorvastatin Calcium 40 MG TAB PO SCH (23:02)
[2022-06-01] MEDS: Melatonin 3 MG TAB PO PRN (23:02)
[2022-06-01] MEDS: HYDROcodone/Acetaminophen 5/325 mg Tablet PO PRN (23:02)
[2022-06-01] MEDS: Carvedilol 6.25 MG TAB PO SCH (23:03)
[2022-06-02 06:59] LABS: #Eosinphils 0.1 thou/uL (0.0-0.7); #Lymphocytes 1.7 thou/uL (1.20-3.40); #Monocytes 0.4 thou/uL (0.11-0.59); #Neutrophils 2.3 thou/uL (1.40-6.50); %Basophils 0.8 % (0.0-1.0); %Eosinophils 3.3 % (0.0-10.0); %Monocytes 8.4 % (0.0-10.0); %Neutrophils 50.6 % (42.0-75.0); Hemoglobin 12.5 g/dL (14.0-18.0); Mean Corpuscular Hemoglobin 35.9 pg (27.0-31.0); Mean Platelet Volume 6.8 fL (7.4-10.4); Platelet Count 162 10x3/uL (130-400); RBC Distribution Width 11.4 % (11.5-14.5); Red Blood Cell (RBC) Count 3.47 mill/uL (4.70-6.10); White Blood Cell (WBC) Count 4.5 10x3/uL (4.8-10.8)
[2022-06-02 07:22] LABS: Anion Gap 12 mmol/L (10-20); BUN (Urea Nitrogen) 17 mg/dL (8.4-25.7); Calc. Creatinine Clearance 83 mL/min (70-130); Calcium 8.8 mg/dL (7.8-10.44); Carbon Dioxide 25 mmol/L (23-31); Chloride 104 mmol/L (98-107); Estimated GFR 90; Glucose 104 mg/dL (83-110); Sodium 137 mmol/L (136-145)
[2022-06-02] MEDS: Aspirin 81 mg Enteric Coated Tablet PO SCH (08:35)
[2022-06-02] MEDS: Liothyronine Sodium 5 MCG TAB PO SCH (08:36)
[2022-06-02] MEDS: Carvedilol 6.25 MG TAB PO SCH ×2 (08:36→21:12)
[2022-06-02] MEDS: rOPINIRole HCl 0.5 MG TAB PO SCH ×3 (08:37→21:29)
[2022-06-02] MEDS: Ascorbic Acid 500 mg Chewable Tablet PO SCH (08:37)
[2022-06-02] MEDS: D5W-AA 4.25% with LYTES 1,000 ML IV SCH (08:38)
[2022-06-02] MEDS ORDERED: Allopurinol 100 MG TAB PO SCH (09:00)
[2022-06-02] MEDS: Sodium Chloride 0.9% 1,000 ML IV SCH (15:04)
[2022-06-02] MEDS ORDERED: Iopamidol-370 76% 500 ML 1 ML ONE (15:34)
[2022-06-02] MEDS: HYDROcodone/Acetaminophen 5/325 mg Tablet PO PRN (21:10)
[2022-06-02] MEDS: Atorvastatin Calcium 40 MG TAB PO SCH (21:11)
[2022-06-02] MEDS: Melatonin 3 MG TAB PO PRN (21:11)
[2022-06-02] MEDS ORDERED: Lorazepam 2 MG/ML VIAL SLOW IVP SCH (22:45)
[2022-06-03] MEDS: Ascorbic Acid 500 mg Chewable Tablet PO SCH (08:40)
[2022-06-03] MEDS: Aspirin 81 mg Enteric Coated Tablet PO SCH (08:41)
[2022-06-03] MEDS: rOPINIRole HCl 0.5 MG TAB PO SCH (08:41)
[2022-06-03] MEDS: Liothyronine Sodium 5 MCG TAB PO SCH (08:41)
[2022-06-03] MEDS: Carvedilol 6.25 MG TAB PO SCH (08:41)
[2022-06-03] MEDS: HYDROcodone/Acetaminophen 5/325 mg Tablet PO PRN (11:57)
[2022-06-03 12:16] VITALS: BP 95/65; TEMP 97.5
== END 2022-06-03 14:00 | disposition home or self-care (01) | DRG 376 ==
LOC: SURG A 12:28 → SJJU 13:22 → OBSVTOIN 06-02 12:48
PROVIDERS: ADMIT Internal Medicine; ATTEND Hospitalist
PROC: 3E0336Z Introduction of Nutritional Substance into Peripheral Vein, Percutaneous Approach (ICD-10-PCS; principal; 2022-06-02)
DX: C15.5 Malignant neoplasm of lower third of esophagus (principal); E86.0 Dehydration; I48.91 Unspecified atrial fibrillation; I10 Essential (primary) hypertension; E78.5 Hyperlipidemia, unspecified; I25.10 Atherosclerotic heart disease of native coronary artery without angina pectoris; M10.9 Gout, unspecified; E03.9 Hypothyroidism, unspecified; G25.81 Restless legs syndrome; K21.9 Gastro-esophageal reflux disease without esophagitis; R86.0 Abnormal level of enzymes in specimens from male genital organs; Z88.8 Allergy status to other drugs, medicaments and biological substances; Z79.01 Long term (current) use of anticoagulants; Z79.82 Long term (current) use of aspirin; Z79.899 Other long term (current) drug therapy; Z95.5 Presence of coronary angioplasty implant and graft; Z90.49 Acquired absence of other specified parts of digestive tract; Z98.890 Other specified postprocedural states
CPT/HCPCS: 36415; 71260; 80048; 80053; 85025; 96374; G0378; G0379; J2060; J2270; J7050

== ENCOUNTER 2022-06-17 09:00 | Outpatient (CLI) | payer MEDICARE, BC | END 2022-06-17 09:01 | disposition home or self-care (01) | LOC: PET 09:00 | PROVIDERS: ATTEND Internal Medicine Hematology & Oncology | DX: C15.5 Malignant neoplasm of lower third of esophagus (principal) | CPT/HCPCS: 78815; A9552 ==

== ENCOUNTER 2022-08-09 01:46 | Observation (INO) | payer MEDICARE, BC ==
[2022-08-09] MEDS ORDERED: Ondansetron PF 4 MG/2 ML Vial IVP PRN (03:48)
[2022-08-09 04:34] VITALS: BMI 23.4
[2022-08-09 04:37] LABS: Amphetamine Not Detected (NotDetected); Barbiturates Screen Not Detected (NotDetected); Benzodiazepine Screen Not Detected (NotDetected); Cocaine Metabolite Screen Not Detected (NotDetected); Methadone Not Detected (NotDetected); Methamphetamine Not Detected (NotDetected); Opiate Screen Detected (NotDetected); Oxycodone Screen Not Detected (NotDetected); Phencyclidine (PCP) Not Detected (NotDetected); THC/Cannabinoid Screen Not Detected (NotDetected); Tricyclic Screen Not Detected (NotDetected)
[2022-08-09 05:26] LABS: Hemoglobin 12.1 g/dL (14.0-18.0); Mean Corpuscular HGB CONC 32.2 g/dL (32.0-36.0); Mean Corpuscular Hemoglobin 34.2 pg (27.0-31.0); Mean Platelet Volume 7.3 fL (7.4-10.4); Platelet Count 203 10x3/uL (130-400); Red Blood Cell (RBC) Count 3.53 mill/uL (4.70-6.10); White Blood Cell (WBC) Count 4.3 10x3/uL (4.8-10.8)
[2022-08-09 05:48] LABS: Anion Gap 13 mmol/L (10-20); BUN (Urea Nitrogen) 15 mg/dL (8.4-25.7); Calc. Creatinine Clearance 91 mL/min (70-130); Calcium 8.7 mg/dL (7.8-10.44); Carbon Dioxide 21 mmol/L (23-31); Chloride 106 mmol/L (98-107); Estimated GFR 93; Glucose 83 mg/dL (83-110); Potassium 4.2 mmol/L (3.5-5.1); Sodium 136 mmol/L (136-145)
[2022-08-09 06:00] LABS: #Eosinphils 0.1 thou/uL (0.0-0.7); #Lymphocytes 0.8 thou/uL (1.20-3.40); #Monocytes 0.3 thou/uL (0.11-0.59); #Neutrophils 3.2 thou/uL (1.40-6.50); %Basophils 0.5 % (0.0-1.0); %Eosinophils 1.7 % (0.0-10.0); %Lymphocytes 18.4 % (21.0-51.0); %Monocytes 6.3 % (0.0-10.0); %Neutrophils 73.1 % (42.0-75.0); MDiff Complete? YES; Macrocytosis SLIGHT = 6-15 cells (100X) (0-5/hpf); Platelet Morphology Comment Appears Adequate
[2022-08-09] MEDS: Acetaminophen 325 MG TAB PO PRN ×3 (06:05→20:40)
[2022-08-09] MEDS: Apixaban 5 MG TAB PO SCH ×2 (12:05→20:38)
[2022-08-09] MEDS ORDERED: Morphine 2 MG/ML VIAL SLOW IVP SCH (21:00)
[2022-08-09] MEDS ORDERED: clonazePAM 1 MG TAB PER TUBE SCH (23:45)
[2022-08-10] MEDS ORDERED: traMADol HCl 50 MG TAB PER TUBE PRN (00:06)
[2022-08-10] MEDS: Acetaminophen W/ Codeine 5 ML UDCUP PER TUBE PRN ×2 (02:59→10:17)
[2022-08-10 05:09] LABS: #Eosinphils 0.1 thou/uL (0.0-0.7); #Lymphocytes 0.5 thou/uL (1.20-3.40); #Monocytes 0.3 thou/uL (0.11-0.59); %Basophils 0.3 % (0.0-1.0); %Eosinophils 1.7 % (0.0-10.0); %Lymphocytes 12.6 % (21.0-51.0); %Monocytes 8.3 % (0.0-10.0); %Neutrophils 77.2 % (42.0-75.0); Hemoglobin 11.6 g/dL (14.0-18.0); Mean Corpuscular HGB CONC 33.9 g/dL (32.0-36.0); Mean Corpuscular Hemoglobin 35.9 pg (27.0-31.0); Mean Platelet Volume 7.5 fL (7.4-10.4); Platelet Count 165 10x3/uL (130-400); Red Blood Cell (RBC) Count 3.23 mill/uL (4.70-6.10); White Blood Cell (WBC) Count 3.9 10x3/uL (4.8-10.8)
[2022-08-10 05:33] LABS: Anion Gap 10 mmol/L (10-20); BUN (Urea Nitrogen) 13 mg/dL (8.4-25.7); Calc. Creatinine Clearance 87 mL/min (70-130); Calcium 8.6 mg/dL (7.8-10.44); Carbon Dioxide 25 mmol/L (23-31); Chloride 106 mmol/L (98-107); Estimated GFR 92; Glucose 116 mg/dL (83-110); Potassium 4.1 mmol/L (3.5-5.1); Sodium 137 mmol/L (136-145)
[2022-08-10] MEDS ORDERED: Levothyroxine Sodium 75 MCG TAB PER TUBE SCH (06:00)
[2022-08-10] MEDS ORDERED: Liothyronine Sodium 5 MCG TAB PER TUBE SCH (09:00)
[2022-08-10 09:01] VITALS: BP 100/62; TEMP 97.1
[2022-08-10] MEDS: Apixaban 5 MG TAB PO SCH (09:45)
[2022-08-10] MEDS ORDERED: clonazePAM 1 MG TAB PER TUBE SCH (21:00)
== END 2022-08-10 11:42 | disposition home or self-care (01) ==
LOC: 2NO 02:50
PROVIDERS: ADMIT Internal Medicine; ATTEND Internal Medicine
DX: R55 Syncope and collapse (principal); C15.8 Malignant neoplasm of overlapping sites of esophagus; I48.20 Chronic atrial fibrillation, unspecified; I25.10 Atherosclerotic heart disease of native coronary artery without angina pectoris; I11.0 Hypertensive heart disease with heart failure; I50.30 Unspecified diastolic (congestive) heart failure; E78.5 Hyperlipidemia, unspecified; D63.0 Anemia in neoplastic disease; K21.9 Gastro-esophageal reflux disease without esophagitis; E03.9 Hypothyroidism, unspecified; M10.9 Gout, unspecified; I77.810 Thoracic aortic ectasia; G93.40 Encephalopathy, unspecified; Z87.891 Personal history of nicotine dependence; Z79.01 Long term (current) use of anticoagulants; Z79.890 Hormone replacement therapy; Z79.899 Other long term (current) drug therapy; Z88.8 Allergy status to other drugs, medicaments and biological substances; Z93.1 Gastrostomy status; Z95.0 Presence of cardiac pacemaker; Z95.5 Presence of coronary angioplasty implant and graft
CPT/HCPCS: 77386; 80048 ×2; 80306; 84443; 85025 ×2; 95712; 95819; 95957; 96374; 96375; G0378 ×2; 36415; J2272; J2405

== ENCOUNTER 2022-08-24 10:45 | Inpatient (IN) | payer MEDICARE, BC ==
[2022-08-24 12:03] LABS: Bacteria/HPF None Seen HPF (None Seen); Bilirubin Negative (Negative); Blood, Urine Negative (Negative); Clarity Clear (Clear); Glucose, Urine (Dipstick) Normal (Negative); Ketone, Urine Negative (Negative); Leukocyte 25 Leu/uL (Negative); Nitrite Negative (Negative); Protein, Urine (Dipstick) Negative (Neg-Trace); RBC/HPF 0-3 HPF (0-3); Specific Gravity, Urine 1.012 (1.002-1.036); Squamous Epithelial None Seen HPF (0-3); Urobilinogen Normal mg/dL (Less than 2); WBC/HPF 0-3 HPF (0-3)
[2022-08-24 12:50] LABS: #Lymphocytes 0.2 thou/uL (1.20-3.40); #Monocytes 0.3 thou/uL (0.11-0.59); #Neutrophils 3.1 thou/uL (1.40-6.50); %Eosinophils 0.7 % (0.0-10.0); %Lymphocytes 5.7 % (21.0-51.0); %Monocytes 7.3 % (0.0-10.0); %Neutrophils 86.2 % (42.0-75.0); Hemoglobin 12.5 g/dL (14.0-18.0); MDiff Complete? YES; Mean Corpuscular Hemoglobin 35.9 pg (27.0-31.0); Mean Platelet Volume 8.1 fL (7.4-10.4); Platelet Count 81 10x3/uL (130-400); Platelet Morphology Comment Appears Decreased; Polychromasia SLIGHT = 2-3 cells (100X) (0-2/hpf); RBC Distribution Width 11.6 % (11.5-14.5); Red Blood Cell (RBC) Count 3.47 mill/uL (4.70-6.10); White Blood Cell (WBC) Count 3.6 10x3/uL (4.8-10.8)
[2022-08-24 12:55] LABS: ALT (SGPT) 9 U/L (8-55); AST (SGOT) 12 U/L (5-34); Albumin 3.4 g/dL (3.4-4.8); Alkaline Phosphatase 74 U/L (40-110); Anion Gap 11 mmol/L (10-20); BUN (Urea Nitrogen) 19 mg/dL (8.4-25.7); Bilirubin, Total 0.3 mg/dL (0.2-1.2); Calc. Creatinine Clearance 0 mL/min (70-130); Calcium 8.4 mg/dL (7.8-10.44); Carbon Dioxide 23 mmol/L (23-31); Chloride 102 mmol/L (98-107); Estimated GFR 93; Globulin 2.6 g/dL (2.4-3.5); Glucose 93 mg/dL (83-110); Potassium 4.9 mmol/L (3.5-5.1); Sodium 131 mmol/L (136-145)
[2022-08-24] MEDS ORDERED: Pantoprazole 40 MG VIAL ONE (13:44)
[2022-08-24] MEDS ORDERED: cefTRIAXone (ROCEPHIN) 2 GM VIAL ONE (14:16)
[2022-08-24] MEDS ORDERED: fentaNYL 50 mcg/mL 1 mL Vial ONE (14:16)
[2022-08-24] MEDS ORDERED: Vancomycin 1.5 GRAM/300 ML BAG 1.5 GM in Premix Bag 1 BAG IVPB SCH (14:30)
[2022-08-24] MEDS ORDERED: Ondansetron ODT 8 MG TAB PO PRN (15:35)
[2022-08-24] MEDS ORDERED: Prochlorperazine Maleate 5 MG TAB PO PRN (15:35)
[2022-08-24] MEDS ORDERED: Polyethylene Glycol 3350 17 GM Packet PO PRN (15:35)
[2022-08-24] MEDS ORDERED: Bisacodyl 10 MG SUPP PR PRN (15:41)
[2022-08-24] MEDS ORDERED: Acetaminophen 325 MG TAB PO PRN (15:41)
[2022-08-24] MEDS ORDERED: Bisacodyl 5 MG TAB PO PRN (15:41)
[2022-08-24] MEDS ORDERED: HYDROcodone/Acetaminophen 5/325 mg Tablet PO PRN (15:41)
[2022-08-24] MEDS ORDERED: Senokot S 8.6-50 MG TAB PO PRN (15:41)
[2022-08-24] MEDS ORDERED: Acetaminophen 650 MG Suppository PR PRN (15:41)
[2022-08-24] MEDS ORDERED: VANCOMYCIN IVPB PRN (16:31)
[2022-08-24 16:40] LABS: Magnesium 1.7 mg/dL (1.6-2.6); Phosphorus 2.8 mg/dL (2.3-4.7)
[2022-08-24 16:59] LABS: Free T4 (Free Thyroxine) 0.98 ng/dL (0.70-1.48); Thyroid Stimulating Hormone 1.9356 uIU/mL (0.35-4.94)
[2022-08-24] MEDS: Carvedilol 3.125 MG TAB PO SCH (18:52)
[2022-08-24] MEDS ORDERED: Vancomycin 1 GM in Premix Bag 1 BAG IVPB SCH (21:00)
[2022-08-24 21:15] LABS: SARS-CoV-2 NAA Rapid Test Not Detected (NotDetected)
[2022-08-24] MEDS: Apixaban 5 MG TAB PO SCH (21:16)
[2022-08-24] MEDS: clonazePAM 1 MG TAB PO PRN (22:23)
[2022-08-25] MEDS ORDERED: Sodium Chloride 0.9% 500 ML IV SCH ×2 (02:00→03:45)
[2022-08-25] MEDS: Carvedilol 3.125 MG TAB PO SCH ×3 (02:21→19:35)
[2022-08-25 05:41] LABS: #Lymphocytes 0.2 thou/uL (1.20-3.40); #Monocytes 0.3 thou/uL (0.11-0.59); #Neutrophils 1.7 thou/uL (1.40-6.50); %Basophils 0.3 % (0.0-1.0); %Eosinophils 0.7 % (0.0-10.0); %Lymphocytes 8.7 % (21.0-51.0); %Monocytes 14.5 % (0.0-10.0); %Neutrophils 75.7 % (42.0-75.0); Hemoglobin 10.5 g/dL (14.0-18.0); Mean Corpuscular HGB CONC 34.8 g/dL (32.0-36.0); Mean Corpuscular Hemoglobin 36.5 pg (27.0-31.0); Mean Platelet Volume 7.4 fL (7.4-10.4); Platelet Count 61 10x3/uL (130-400); RBC Distribution Width 11.6 % (11.5-14.5); Red Blood Cell (RBC) Count 2.87 mill/uL (4.70-6.10); White Blood Cell (WBC) Count 2.2 10x3/uL (4.8-10.8)
[2022-08-25 06:00] LABS: ALT (SGPT) 8 U/L (8-55); AST (SGOT) 10 U/L (5-34); Albumin 2.8 g/dL (3.4-4.8); Alkaline Phosphatase 55 U/L (40-110); Anion Gap 8 mmol/L (10-20); BUN (Urea Nitrogen) 13 mg/dL (8.4-25.7); Bilirubin, Total 0.3 mg/dL (0.2-1.2); Calc. Creatinine Clearance 104 mL/min (70-130); Calcium 8.2 mg/dL (7.8-10.44); Carbon Dioxide 22 mmol/L (23-31); Chloride 107 mmol/L (98-107); Estimated GFR 96; Glucose 83 mg/dL (83-110); Potassium 4.2 mmol/L (3.5-5.1); Protein, Total 4.8 g/dL (5.8-8.1); Sodium 133 mmol/L (136-145)
[2022-08-25] MEDS: Levothyroxine Sodium 75 MCG TAB PO SCH (06:15)
[2022-08-25] MEDS: Apixaban 5 MG TAB PO SCH ×2 (09:14→20:59)
[2022-08-25] MEDS ORDERED: Acetaminophen W/ Codeine 5 ML UDCUP PO PRN (11:59)
[2022-08-25 13:24] VITALS: BMI 24.3
[2022-08-25] MEDS: Liothyronine Sodium 5 MCG TAB PO SCH (13:34)
[2022-08-25] MEDS ORDERED: cefTRIAXone\\ROCEPHIN 1 GM in Sodium Chloride 0.9% 100 ML IVPB SCH (14:00)
[2022-08-25] MEDS ORDERED: Vancomycin 1.5 GRAM/300 ML BAG 1.5 GM in Premix Bag 1 BAG IVPB SCH (15:00)
[2022-08-25] MEDS: clonazePAM 1 MG TAB PO PRN (23:44)
[2022-08-26] MEDS: Levothyroxine Sodium 75 MCG TAB PO SCH (06:03)
[2022-08-26] MEDS: Carvedilol 3.125 MG TAB PO SCH (08:31)
[2022-08-26] MEDS: Apixaban 5 MG TAB PO SCH (08:31)
[2022-08-26] MEDS: Liothyronine Sodium 5 MCG TAB PO SCH (08:31)
[2022-08-26 13:13] VITALS: BP 110/73; TEMP 98.4
== END 2022-08-26 13:20 | disposition home or self-care (01) | DRG 312 ==
LOC: ERS 10:45 → ERHOLD 14:04 → 2SW 17:49 → OBSVTOIN 08-25 15:25
PROVIDERS: ADMIT Hospitalist; ATTEND Hospitalist
PROC: 4B02XSZ Measurement of Cardiac Pacemaker, External Approach (ICD-10-PCS; principal; 2022-08-24)
DX: I95.1 Orthostatic hypotension (principal); D61.810 Antineoplastic chemotherapy induced pancytopenia; C15.9 Malignant neoplasm of esophagus, unspecified; I50.22 Chronic systolic (congestive) heart failure; Z66 Do not resuscitate; Z20.822 Contact with and (suspected) exposure to COVID-19; E03.9 Hypothyroidism, unspecified; G25.81 Restless legs syndrome; T45.1X5A Adverse effect of antineoplastic and immunosuppressive drugs, initial encounter; I48.91 Unspecified atrial fibrillation; I25.10 Atherosclerotic heart disease of native coronary artery without angina pectoris; E78.5 Hyperlipidemia, unspecified; K21.9 Gastro-esophageal reflux disease without esophagitis; M10.9 Gout, unspecified; E86.0 Dehydration; R13.12 Dysphagia, oropharyngeal phase; I11.0 Hypertensive heart disease with heart failure; Z95.5 Presence of coronary angioplasty implant and graft; Z95.0 Presence of cardiac pacemaker; Z90.49 Acquired absence of other specified parts of digestive tract; Z90.89 Acquired absence of other organs; Z80.9 Family history of malignant neoplasm, unspecified; Z87.891 Personal history of nicotine dependence; Z88.8 Allergy status to other drugs, medicaments and biological substances; Z79.01 Long term (current) use of anticoagulants; Z79.890 Hormone replacement therapy; Z93.1 Gastrostomy status
CPT/HCPCS: 36415; 71045; 74018; 77386; 80053; 81003; 81015; 82533; 83605; 83735; 83880; 84100; 84145; 84439; 84443; 84481; 84484; 85025; 87040; 87086; 93005; C9113; J0696; J3010; J3370; J3490; J7030